=== PATIENT | male | born 1935 | race Caucasian/White ===

== ENCOUNTER 2023-11-29 14:51 | Emergency (ER) | payer MEDICARE, OTHER ==
[~2023-11-29] VITALS: Ht 165.1 cm; Wt 81.6 kg
[2023-11-29 14:58] VITALS: BP 145/67; PULSE 66; RESP 18; TEMP 97.3; O2SAT 99
[2023-11-29] MEDS ORDERED: NAPR-337 PO (15:35)
[2023-11-29] MEDS ORDERED: LISI5TAB24 PO (15:35)
[2023-11-29] MEDS ORDERED: TAMS0.4C96 PO (15:35)
[2023-11-29] MEDS ORDERED: ASPI-1822 PO (15:35)
[2023-11-29] MEDS ORDERED: ATEN100T6 PO (15:35)
[2023-11-29] MEDS ORDERED: ATOR20TA PO (15:35)
[2023-11-29 15:40] LABS: EOSINOPHILS % (AUTO) 0.1 % (0.0-4.0); HEMATOCRIT 35.1 % (36-52); HEMOGLOBIN 12.3 g/dL (12.0-18.0); LYMPHOCYTES # (AUTO) 1.5 K/uL (2.0-11.5); LYMPHOCYTES % (AUTO) 16.5 % (20.5-51.1); MEAN CORPUSCULAR HEMOGLOBIN 33 pg (27-31); MEAN CORPUSCULAR HGB CONC 35 g/dL (33-37); MONOCYTES # (AUTO) 0.6 K/uL (0.8-1.0); NEUTROPHILS # (AUTO) 7.1 K/uL (1.8-7.7); NEUTROPHILS % (AUTO) 76.4 % (42.2-75.2); PLATELET COUNT (AUTO) 203 K/uL (140-450); RED BLOOD CELL COUNT(AUTO) 3.77 MIL/uL (4.20-6.10); RED CELL DISTRIBUTION WIDTH 15.7 % (11.6-13.7); WHITE BLOOD COUNT (AUTO) 9.3 K/uL (4.8-10.8)
[2023-11-29] MEDS: KETOROLAC 30 MG/ML VIAL IVP ONE (15:51)
[2023-11-29 15:57] LABS: ANION GAP 10.8 (8-16); CALCIUM 8.8 mg/dL (8.5-10.1); CHLORIDE 97 mmol/L (98-107); CREATININE 0.9 mg/dL (0.6-1.3); GLUCOSE 138 mg/dL (74-106); POTASSIUM 3.8 mmol/L (3.5-5.1); SODIUM SERUM 132 mmol/L (136-145); UREA NITROGEN, BLOOD 25 mg/dL (7-18)
[2023-11-29 16:17] LABS: ALBUMIN 2.5 g/dL (3.4-5.0); BILIRUBIN,DIRECT 0.2 mg/dL (0.0-0.3); TOTAL BILIRUBIN 0.9 mg/dL (0.0-1.0); TOTAL PROTEIN, SERUM 6.5 g/dL (6.4-8.2)
[2023-11-29 16:54] LABS: APPEARANCE,URINE CLEAR (CLEAR); BILIRUBIN,URINE 1+ (NEGATIVE); BLOOD, URINE 1+ (NEGATIVE); COLOR,URINE YELLOW (YELLOW); LEUKOCYTE ESTERASE ,URINE NEGATIVE (NEGATIVE); NITRITE, URINE NEGATIVE (NEGATIVE); PROTEIN,URINE 1+ (NEGATIVE); UGLUCOSE NEGATIVE (NEGATIVE)
[2023-11-29] MEDS ORDERED: OMEP40EC23 PO (16:55)
[2023-11-29] MEDS ORDERED: LOPE-289 PO (16:55)
[2023-11-29] MEDS ORDERED: IBUP-2213 PO (16:55)
[2023-11-29] MEDS: NACL 0.9% 1,000 ML IV ONE (17:01)
[2023-11-29 17:10] LABS: RBC,URINE 0-5 /HPF (0-5); WBC,URINE 0-5 /HPF (0-5)
[2023-11-29 17:11] LABS: BACTERIA,URINE 10-30 (MOD) /HPF (None Seen); ICTOTEST NEGATIVE (NEGATIVE); SQUAMOUS EPITHELIAL CELL,UR 0-3 (FEW) /LPF (0-3 (FEW))
[2023-11-29] MEDS: MORPHINE SULFATE 4 MG/ML SYR IVP ONE (17:59)
[2023-11-29 18:15] VITALS: BP 126/65; PULSE 74; RESP 16; O2SAT 95
== END 2023-11-29 18:15 | disposition home or self-care (01) ==
LOC: MED 14:51
DX: R10.31 Right lower quadrant pain (principal); R10.11 Right upper quadrant pain; R19.7 Diarrhea, unspecified; I10 Essential (primary) hypertension; Z79.899 Other long term (current) drug therapy
CPT/HCPCS: 36415; 74176; 80048; 80076; 81001; 83690; 85025; 96361; 96374; 99285; J1885

== ENCOUNTER 2023-12-01 11:49 | Inpatient (IN) | payer MEDICARE, OTHER ==
[~2023-12-01] VITALS: Ht 170.2 cm; Wt 65.8 kg
[~2023-12-01 11:49] MED LIST: ASPI-1822 PO; ATEN100T6 PO; ATOR20TA PO; IBUP-2213 PO; LISI5TAB24 PO; LOPE-289 PO; NAPR-337 PO; OMEP40EC23 PO; TAMS0.4C96 PO
[2023-12-01 11:59] VITALS: BP 102/64; PULSE 100; RESP 20; TEMP 97.8; O2SAT 93
[2023-12-01 12:32] LABS: BASOPHILS % (AUTO) 0.1 % (0.0-2.0); EOSINOPHILS % (AUTO) 0.2 % (0.0-4.0); HEMATOCRIT 33.9 % (36-52); HEMOGLOBIN 11.8 g/dL (12.0-18.0); LYMPHOCYTES # (AUTO) 0.2 K/uL (2.0-11.5); LYMPHOCYTES % (AUTO) 2.4 % (20.5-51.1); MEAN CORPUSCULAR HEMOGLOBIN 32 pg (27-31); MEAN CORPUSCULAR HGB CONC 35 g/dL (33-37); MEAN CORPUSCULAR VOLUME 93.2 fL (80-94); MONOCYTES # (AUTO) 0.1 K/uL (0.8-1.0); MONOCYTES % (AUTO) 0.9 % (1.7-9.3); NEUTROPHILS # (AUTO) 6.4 K/uL (1.8-7.7); NEUTROPHILS % (AUTO) 96.4 % (42.2-75.2); PLATELET COUNT (AUTO) 140 K/uL (140-450); RED BLOOD CELL COUNT(AUTO) 3.64 MIL/uL (4.20-6.10); RED CELL DISTRIBUTION WIDTH 16.1 % (11.6-13.7); WHITE BLOOD COUNT (AUTO) 6.7 K/uL (4.8-10.8)
[2023-12-01 12:58] LABS: ALANINE AMINOTRANSFERASE 14 U/L (12-78); ALBUMIN 1.6 g/dL (3.4-5.0); ALKALINE PHOSPHATASE 57 U/L (50-136); ANION GAP 13.8 (8-16); ASPARTATE AMINOTRANSFERASE 18 U/L (15-37); CALCIUM 7.6 mg/dL (8.5-10.1); CARBON DIOXIDE 21.8 mmol/L (21-32); CHLORIDE 95 mmol/L (98-107); CREATININE 1.4 mg/dL (0.6-1.3); GLUCOSE 77 mg/dL (74-106); LIPASE 13 U/L (16-77); POTASSIUM 3.6 mmol/L (3.5-5.1); SODIUM SERUM 127 mmol/L (136-145); TOTAL PROTEIN, SERUM 5.2 g/dL (6.4-8.2); UREA NITROGEN, BLOOD 33 mg/dL (7-18)
[2023-12-01] MEDS ORDERED: PIPERACILLIN/TAZOBACTAM 3.375 GM VIAL IV ONE (14:23)
[2023-12-01] MEDS: PIPERACILLIN/TAZOBACTAM 3.375 GM in DEXTROSE 5% 50 ML IV ONE (14:39)
[2023-12-01 14:52] LABS: INR 1.19 (0.8-1.2); PROTHROMBIN TIME 12.4 secs (10.8-13.4)
[2023-12-01] MEDS ORDERED: cefTRIAXone 2,000 MG VIAL ONE (16:03)
[2023-12-01] MEDS: cefTRIAXone 2,000 MG in DEXTROSE 5% 100 ML IV ONE (16:11)
[2023-12-01] MEDS ORDERED: ACETAMINOPHEN 325 MG TAB PO PRN (21:50)
[2023-12-01] MEDS ORDERED: ONDANSETRON 4 MG/2 ML VIAL IVP PRN (21:50)
[2023-12-01] MEDS: LACTATED RINGERS 1,000 ML IV SCH (23:09)
[2023-12-01 23:25] VITALS: PULSE 81; RESP 18; O2SAT 97
[2023-12-02] VITALS: BP 109/76; PULSE 81; PULSE 92; RESP 18; TEMP 97.1; O2SAT 95
[2023-12-02 04:00] VITALS: BP 105/63; PULSE 79; PULSE 83; RESP 18; TEMP 97.5; O2SAT 96
[2023-12-02] MEDS: PIPERACILLIN/TAZOBACTAM 3.375 GM in DEXTROSE 5% 50 ML IV SCH (05:06)
[2023-12-02] MEDS: PIPERACILLIN/TAZOBACTAM 3.375 GM VIAL IV ONE (05:07)
[2023-12-02 07:18] LABS: HEMOGLOBIN 12.1 g/dL (12.0-18.0); MEAN CORPUSCULAR HEMOGLOBIN 32 pg (27-31); RED BLOOD CELL COUNT(AUTO) 3.75 MIL/uL (4.20-6.10)
[2023-12-02 07:23] LABS: HEMATOCRIT 34.7 % (36-52); MEAN CORPUSCULAR HGB CONC 35 g/dL (33-37); MEAN CORPUSCULAR VOLUME 92.5 fL (80-94); PLATELET COUNT (AUTO) 94 K/uL (140-450); RED CELL DISTRIBUTION WIDTH 16.2 % (11.6-13.7); WHITE BLOOD COUNT (AUTO) 10.2 K/uL (4.8-10.8)
[2023-12-02 07:26] LABS: ALANINE AMINOTRANSFERASE 14 U/L (12-78); ALBUMIN 1.6 g/dL (3.4-5.0); ALKALINE PHOSPHATASE 56 U/L (50-136); ASPARTATE AMINOTRANSFERASE 24 U/L (15-37); CALCIUM 8.1 mg/dL (8.5-10.1); CARBON DIOXIDE 21.9 mmol/L (21-32); CHLORIDE 92 mmol/L (98-107); CREATININE 1.4 mg/dL (0.6-1.3); GLUCOSE 54 mg/dL (74-106); MAGNESIUM 1.9 mg/dL (1.8-2.4); POTASSIUM 3.9 mmol/L (3.5-5.1); SODIUM SERUM 125 mmol/L (136-145); TOTAL BILIRUBIN 0.8 mg/dL (0.0-1.0); TOTAL PROTEIN, SERUM 5.4 g/dL (6.4-8.2); UREA NITROGEN, BLOOD 41 mg/dL (7-18)
[2023-12-02 08:00] VITALS: BP 101/68; PULSE 72; PULSE 80; RESP 18; TEMP 98.1; O2SAT 96
[2023-12-02 08:01] LABS: METAMYELOCYTES % 1 % (0-0); MYELOCYTES % 1 % (0-0)
[2023-12-02 08:02] LABS: LYMPHOCYTES % (MANUAL) 3 % (20-46); MONOCYTES % (MANUAL) 4 % (5-12)
[2023-12-02] MEDS: PANTOPRAZOLE 40 MG INJ VIAL IVP SCH (09:27)
[2023-12-02 12:00] VITALS: BP 111/72; PULSE 76; PULSE 83; RESP 18; TEMP 98.1; O2SAT 100
[2023-12-02 16:00] VITALS: BP 122/72; PULSE 76; PULSE 81; RESP 18; TEMP 98; O2SAT 100
[2023-12-02] MEDS: MORPHINE SULFATE 2 MG/ML SYR IVP PRN (16:08)
[2023-12-02 20:00] VITALS: BP 84/55; PULSE 91; PULSE 98; RESP 16; TEMP 96.5; O2SAT 100
[2023-12-02] MEDS ORDERED: INSULIN LISPRO SLIDING SCALE 100 UNITS/ML VIAL SUBQ PRN (20:50)
[2023-12-02] MEDS ORDERED: BLOOD GLUCOSE MONITORING 1 DEV DEV FS SCH (21:00)
[2023-12-03] VITALS (7 sets, daily range): BP systolic 105–120; BP diastolic 64–74; PULSE 68–95; RESP 16–19; TEMP 96.9–98.3; O2SAT 94–100
[2023-12-03] MEDS ORDERED: CIPR500T4 PO (15:40)
[2023-12-03] MEDS ORDERED: METR-520 PO (15:40)
[2023-12-03] MEDS ORDERED: ACET-8905 PO (15:40)
== END 2023-12-03 16:40 | disposition home or self-care (01) | DRG 871 ==
LOC: MED 11:49 → MTU 21:48
PROVIDERS: ADMIT Hospitalist; ATTEND Hospitalist
DX: A41.9 Sepsis, unspecified organism (principal); E43 Unspecified severe protein-calorie malnutrition; E87.1 Hypo-osmolality and hyponatremia; E87.20 Acidosis, unspecified; K57.20 Diverticulitis of large intestine with perforation and abscess without bleeding; Z79.899 Other long term (current) drug therapy; Z68.22 Body mass index [BMI] 22.0-22.9, adult
CPT/HCPCS: 36415; 71045; 74018; 76705; 80053; 83690; 83735; 83880; 84484; 85025; 85610; 85730; 86886; 86900; 86901; 87081; 96365; 96367; 99291; 99292; C9113; J0696; J2270; J2543; J7060; Q0092; Q9967

== ENCOUNTER 2023-12-08 03:04 | Inpatient (IN) | payer OTHER, MEDICARE ==
[2023-12-08] VITALS (18 sets, daily range): BP systolic 65–137; BP diastolic 40–76; PULSE 52–84; RESP 16–30; TEMP 86–101; O2SAT 96–100
[~2023-12-08] VITALS: Ht 165.1 cm; Wt 59.0 kg
[~2023-12-08 03:04] MED LIST changes: +ACET-8905 PO; +CIPR500T4 PO; -IBUP-2213 PO; +METR-520 PO
[2023-12-08] MEDS ORDERED: NACL 0.9% 1,000 ML IV SCH (03:20)
[2023-12-08] MEDS ORDERED: TAMS0.4C97 PO (04:03)
[2023-12-08] MEDS ORDERED: CIPR500P1 PO (04:03)
[2023-12-08] MEDS ORDERED: NAPR-337 PO (04:03)
[2023-12-08] MEDS ORDERED: METR-520 PO (04:03)
[2023-12-08] MEDS ORDERED: ACET-8905 PO (04:03)
[2023-12-08] MEDS ORDERED: ATEN100T2 PO (04:03)
[2023-12-08] MEDS ORDERED: ASPI-1822 PO (04:03)
[2023-12-08 04:16] LABS: HEMATOCRIT 34.3 % (36-52); HEMOGLOBIN 11.4 g/dL (12.0-18.0); MEAN CORPUSCULAR HEMOGLOBIN 32 pg (27-31); MEAN CORPUSCULAR HGB CONC 33 g/dL (33-37); MEAN CORPUSCULAR VOLUME 95.6 fL (80-94); PLATELET COUNT (AUTO) 140 K/uL (140-450); RED BLOOD CELL COUNT(AUTO) 3.58 MIL/uL (4.20-6.10); RED CELL DISTRIBUTION WIDTH 17.2 % (11.6-13.7); WHITE BLOOD COUNT (AUTO) 15.1 K/uL (4.8-10.8)
[2023-12-08 04:17] LABS: BILIRUBIN,URINE 1+ (NEGATIVE); BLOOD, URINE 2+ (NEGATIVE); COLOR,URINE YELLOW (YELLOW); LEUKOCYTE ESTERASE ,URINE NEGATIVE (NEGATIVE); NITRITE, URINE NEGATIVE (NEGATIVE); PH,URINE 5.5 (5.0-9.0); PROTEIN,URINE NEGATIVE (NEGATIVE); UGLUCOSE NEGATIVE (NEGATIVE); UROBILINOGEN,URINE 0.2 EU/dL (0.2 - 1)
[2023-12-08 04:17] LABS: ANION GAP 17.1 (8-16); CALCIUM 8.7 mg/dL (8.5-10.1); CARBON DIOXIDE 21.1 mmol/L (21-32); CHLORIDE 97 mmol/L (98-107); CREATININE 3.1 mg/dL (0.6-1.3); GLUCOSE 135 mg/dL (74-106); POTASSIUM 5.2 mmol/L (3.5-5.1); SODIUM SERUM 130 mmol/L (136-145)
[2023-12-08] MEDS: PIPERACILLIN/TAZOBACTAM 3.375 GM in DEXT 5% MINI-BAG PLUS 50 ML IV ONE (04:20)
[2023-12-08] MEDS ORDERED: PIPERACILLIN/TAZOBACTAM 3.375 GM VIAL IV ONE (04:21)
[2023-12-08 04:23] LABS: UREA NITROGEN, BLOOD 133 mg/dL (7-18)
[2023-12-08] MEDS: SODIUM BICARBONATE 8.4% PFS 50 MEQ/50 ML SYR IVP ONE ×2 (04:25→06:48)
[2023-12-08 04:29] LABS: APPEARANCE,URINE SLIGHTLY HAZY (CLEAR)
[2023-12-08 04:30] LABS: INR 1.04 (0.8-1.2); PARTIAL THROMBOPLASTIN TIME 31.7 secs (22-35.6); PROTHROMBIN TIME 10.9 secs (10.8-13.4)
[2023-12-08] MEDS: NACL 0.9% 1,000 ML IV ONE (04:32)
[2023-12-08 04:33] LABS: ALANINE AMINOTRANSFERASE 27 U/L (12-78); ALBUMIN 1.5 g/dL (3.4-5.0); ALKALINE PHOSPHATASE 152 U/L (50-136); ASPARTATE AMINOTRANSFERASE 42 U/L (15-37); BILIRUBIN,DIRECT 0.5 mg/dL (0.0-0.3); CREATINE KINASE, TOTAL 141 U/L (39-308); TOTAL PROTEIN, SERUM 5.8 g/dL (6.4-8.2)
[2023-12-08 04:37] LABS: EOSINOPHILS % (MANUAL) 1 % (0-4); LYMPHOCYTES % (MANUAL) 3 % (20-46); MONOCYTES % (MANUAL) 6 % (5-12)
[2023-12-08 04:44] LABS: LACTIC ACID 2.1 mmol/L (0.4-2.0)
[2023-12-08 04:46] LABS: BACTERIA,URINE 2+ /HPF (None Seen); RBC,URINE 20-50 /HPF (0-5); SQUAMOUS EPITHELIAL CELL,UR 4-10 (MOD) /LPF (0-3 (FEW)); WBC,URINE 0-5 /HPF (0-5)
[2023-12-08 04:48] LABS: ICTOTEST NEGATIVE (NEGATIVE)
[2023-12-08] MEDS ORDERED: ALBUMIN HUMAN 5 % 500 ML IV SCH (05:25)
[2023-12-08] MEDS ORDERED: METOCLOPRAMIDE 10 MG/2 ML INJ VIAL IVP PRN (05:35)
[2023-12-08] MEDS ORDERED: ONDANSETRON 4 MG/2 ML VIAL IVP PRN (05:35)
[2023-12-08] MEDS: NOREPINEPHRINE 4 MG/4 ML VIAL IV ONE ×2 (05:48→12:06)
[2023-12-08] MEDS: ROCURONIUM 50 MG/5 ML VIAL IV ONE ×4 (06:17→08:30)
[2023-12-08] MEDS: fentaNYL citrate 0.05 MG/ML VIAL ONE (06:18)
[2023-12-08] MEDS: DEXTROSE 50% 50 ML SYR IVP ONE (06:48)
[2023-12-08] MEDS: CALCIUM CHLORIDE 10% 100 MG/ML SYR IVP ONE ×2 (06:49→10:31)
[2023-12-08] MEDS ORDERED: SEVOFLURANE 250 ML BTL INH ONE (07:00)
[2023-12-08] MEDS: BUPIVACAINE-MPF 0.25% 30 ML VIAL INJ ONE ×2 (07:09→10:35)
[2023-12-08] MEDS: SUCCINYLCHOLINE CHLORIDE 200 MG/10 ML VIAL IVP ONE (07:33)
[2023-12-08 09:27] LABS: BASOPHILS % (AUTO) 0.1 % (0.0-2.0); EOSINOPHILS % (AUTO) 0.2 % (0.0-4.0); HEMATOCRIT 29.9 % (36-52); HEMOGLOBIN 10.1 g/dL (12.0-18.0); LYMPHOCYTES # (AUTO) 1.2 K/uL (2.0-11.5); LYMPHOCYTES % (AUTO) 8.8 % (20.5-51.1); MEAN CORPUSCULAR HEMOGLOBIN 32 pg (27-31); MEAN CORPUSCULAR HGB CONC 34 g/dL (33-37); MEAN CORPUSCULAR VOLUME 95.4 fL (80-94); MONOCYTES # (AUTO) 0.3 K/uL (0.8-1.0); MONOCYTES % (AUTO) 2.4 % (1.7-9.3); NEUTROPHILS # (AUTO) 12.3 K/uL (1.8-7.7); NEUTROPHILS % (AUTO) 88.5 % (42.2-75.2); PLATELET COUNT (AUTO) 149 K/uL (140-450); RED BLOOD CELL COUNT(AUTO) 3.14 MIL/uL (4.20-6.10); RED CELL DISTRIBUTION WIDTH 16.9 % (11.6-13.7); WHITE BLOOD COUNT (AUTO) 13.9 K/uL (4.8-10.8)
[2023-12-08 09:41] LABS: ANION GAP 14.5 (8-16); CALCIUM 8.2 mg/dL (8.5-10.1); CHLORIDE 104 mmol/L (98-107); CREATININE 2.5 mg/dL (0.6-1.3); GLUCOSE 125 mg/dL (74-106); POTASSIUM 4.5 mmol/L (3.5-5.1); SODIUM SERUM 136 mmol/L (136-145)
[2023-12-08 09:43] LABS: UREA NITROGEN, BLOOD 117 mg/dL (7-18)
[2023-12-08] MEDS: PROPOFOL 1000 MG/100 ML PREMIX 100 ML IV ONE (10:19)
[2023-12-08] MEDS: DEXT 5% /NACL 0.9% 1,000 ML IV SCH (11:00)
[2023-12-08] MEDS: PIPERACILLIN/TAZOBACTAM 2.25 GM in DEXTROSE 5% 50 ML IV SCH (12:13)
[2023-12-08 12:32] LABS: BLOOD GAS HCO3 13.8 mmol/L (22-26); BLOOD GAS PCO2 33.7 mmHg (35-45); BLOOD GAS PH 7.229 (7.35-7.45); BLOOD GAS PO2 96.8 mmHg (75-100)
[2023-12-08 12:33] LABS: BLOOD GAS BASE EXCESS -12.7 mmol/L (-2.0-2.0); BLOOD GAS O2 SAT% 96.4 % (92.0-98.5)
[2023-12-08] MEDS: NOREPINEPHRINE 4 MG in DEXTROSE 5% 250 ML IV PRN (13:05)
[2023-12-08] MEDS: SODIUM BICARBONATE 8.4% PFS 50 MEQ/50 ML SYR IVP SCH (13:06)
[2023-12-08] MEDS: NOREPINEPHRINE 16 MG in DEXTROSE 5% 250 ML IV PRN (15:13)
[2023-12-08] MEDS: VASOPRESSIN 20 UNITS/ML VIAL ONE (15:44)
[2023-12-08] MEDS: VASOPRESSIN 40 UNITS in NACL 0.9% 250 ML IV PRN (15:44)
[2023-12-08] MEDS ORDERED: VANCOMYCIN PER PHARMACY MC PRN (16:45)
[2023-12-08] MEDS ORDERED: VANCOMYCIN 1,000 MG VIAL ONE ×2 (17:16→17:18)
[2023-12-08] MEDS ORDERED: MEROPENEM 1,000 MG VIAL IV ONE (17:17)
[2023-12-08] MEDS: MEROPENEM 1,000 MG in NACL 0.9% 100 ML IV ONE (17:25)
[2023-12-08] MEDS ORDERED: NACL 0.9% 500 ML IV SCH (17:55)
[2023-12-08] MEDS: VANCOMYCIN 1GM/DEXT 5% PREMIX 200 ML IV ONE (18:30)
[2023-12-08] MEDS ORDERED: PHENYLEPHRINE 40 MG in NACL 0.9% 250 ML IV PRN (21:20)
[2023-12-09] VITALS (29 sets, daily range): BP systolic 67–148; BP diastolic 35–92; PULSE 52–79; RESP 16–28; TEMP 97–98.6; O2SAT 94–99
[2023-12-09] MEDS: PROPOFOL 1000 MG/100 ML PREMIX 100 ML IV ONE (00:34)
[2023-12-09] MEDS: PROPOFOL 1000 MG/100 ML PREMIX 100 ML IV PRN ×2 (00:39→12:23)
[2023-12-09] MEDS: NOREPINEPHRINE 4 MG/4 ML VIAL IV ONE (03:08)
[2023-12-09 05:17] LABS: BASOPHILS % (AUTO) 0.1 % (0.0-2.0); HEMATOCRIT 32.8 % (36-52); HEMOGLOBIN 11.2 g/dL (12.0-18.0); LYMPHOCYTES # (AUTO) 0.6 K/uL (2.0-11.5); LYMPHOCYTES % (AUTO) 2.8 % (20.5-51.1); MEAN CORPUSCULAR HEMOGLOBIN 32 pg (27-31); MEAN CORPUSCULAR HGB CONC 34 g/dL (33-37); MEAN CORPUSCULAR VOLUME 94.2 fL (80-94); MONOCYTES # (AUTO) 0.4 K/uL (0.8-1.0); MONOCYTES % (AUTO) 1.8 % (1.7-9.3); NEUTROPHILS # (AUTO) 21.9 K/uL (1.8-7.7); NEUTROPHILS % (AUTO) 95.3 % (42.2-75.2); PLATELET COUNT (AUTO) 140 K/uL (140-450); RED BLOOD CELL COUNT(AUTO) 3.48 MIL/uL (4.20-6.10); RED CELL DISTRIBUTION WIDTH 17.3 % (11.6-13.7)
[2023-12-09 05:46] LABS: CARBON DIOXIDE 19.8 mmol/L (21-32); CHLORIDE 105 mmol/L (98-107); GLUCOSE 360 mg/dL (74-106); POTASSIUM 4.8 mmol/L (3.5-5.1); SODIUM SERUM 136 mmol/L (136-145)
[2023-12-09 05:47] LABS: ALANINE AMINOTRANSFERASE 21 U/L (12-78); ALKALINE PHOSPHATASE 92 U/L (50-136); ASPARTATE AMINOTRANSFERASE 33 U/L (15-37); CALCIUM 7.5 mg/dL (8.5-10.1); TOTAL BILIRUBIN 1.1 mg/dL (0.0-1.0); TOTAL PROTEIN, SERUM 4.1 g/dL (6.4-8.2); UREA NITROGEN, BLOOD 81 mg/dL (7-18)
[2023-12-09 05:48] LABS: ALBUMIN 0.9 g/dL (3.4-5.0); MAGNESIUM 2.3 mg/dL (1.8-2.4)
[2023-12-09] MEDS: PANTOPRAZOLE 40 MG INJ VIAL IVP SCH (08:06)
[2023-12-09] MEDS: MEROPENEM 500 MG in NACL 0.9% 50 ML IV SCH (08:08)
[2023-12-09] MEDS ORDERED: PANTOPRAZOLE 40 MG INJ VIAL IVP SCH (09:00)
[2023-12-09] MEDS: NOREPINEPHRINE 16 MG in DEXTROSE 5% 250 ML IV PRN (11:40)
[2023-12-09] MEDS: VANCOMYCIN 750 MG in DEXTROSE 5% 250 ML IV SCH (21:28)
[2023-12-10] VITALS (32 sets, daily range): BP systolic 108–158; BP diastolic 33–90; PULSE 55–88; RESP 12–24; TEMP 97.3–98.4; O2SAT 92–100
[2023-12-10 05:20] LABS: BASOPHILS % (AUTO) 0.2 % (0.0-2.0); EOSINOPHILS % (AUTO) 0.1 % (0.0-4.0); HEMATOCRIT 26.4 % (36-52); HEMOGLOBIN 8.9 g/dL (12.0-18.0); LYMPHOCYTES # (AUTO) 0.7 K/uL (2.0-11.5); LYMPHOCYTES % (AUTO) 2.9 % (20.5-51.1); MEAN CORPUSCULAR HEMOGLOBIN 32 pg (27-31); MEAN CORPUSCULAR HGB CONC 34 g/dL (33-37); MEAN CORPUSCULAR VOLUME 94.3 fL (80-94); MONOCYTES # (AUTO) 0.7 K/uL (0.8-1.0); MONOCYTES % (AUTO) 2.7 % (1.7-9.3); NEUTROPHILS # (AUTO) 22.5 K/uL (1.8-7.7); NEUTROPHILS % (AUTO) 94.1 % (42.2-75.2); PLATELET COUNT (AUTO) 112 K/uL (140-450); RED BLOOD CELL COUNT(AUTO) 2.81 MIL/uL (4.20-6.10); RED CELL DISTRIBUTION WIDTH 17.1 % (11.6-13.7)
[2023-12-10 05:45] LABS: ALANINE AMINOTRANSFERASE 27 U/L (12-78); ALBUMIN 0.9 g/dL (3.4-5.0); ALKALINE PHOSPHATASE 93 U/L (50-136); ANION GAP 13.3 (8-16); ASPARTATE AMINOTRANSFERASE 40 U/L (15-37); CALCIUM 7.2 mg/dL (8.5-10.1); CARBON DIOXIDE 23.4 mmol/L (21-32); CHLORIDE 103 mmol/L (98-107); CREATININE 1.6 mg/dL (0.6-1.3); GLUCOSE 244 mg/dL (74-106); MAGNESIUM 2.1 mg/dL (1.8-2.4); POTASSIUM 3.7 mmol/L (3.5-5.1); SODIUM SERUM 136 mmol/L (136-145); UREA NITROGEN, BLOOD 64 mg/dL (7-18)
[2023-12-10] MEDS: FUROSEMIDE 100 MG/10 ML VIAL IV SCH (08:14)
[2023-12-10] MEDS: FUROSEMIDE 100 MG in DEXTROSE 5% 100 ML IV SCH (09:15)
[2023-12-10] MEDS ORDERED: FUROSEMIDE IV SCH (10:05)
[2023-12-10] MEDS ORDERED: DEXTROSE 5% IV SCH (10:05)
[2023-12-10] MEDS: ALBUMIN HUMAN 25% 100 ML IV SCH ×2 (11:18→12:15)
[2023-12-10] MEDS: VANCOMYCIN 500 MG in NACL 0.9% 100 ML IV SCH (21:57)
[2023-12-11] VITALS (38 sets, daily range): BP systolic 75–198; BP diastolic 29–79; PULSE 63–101; RESP 15–27; TEMP 97.8–98.8; O2SAT 98–100
[2023-12-11] MEDS: MORPHINE SULFATE 2 MG/ML SYR IVP PRN (02:03)
[2023-12-11 05:47] LABS: BASOPHILS % (AUTO) 0.1 % (0.0-2.0); EOSINOPHILS % (AUTO) 0.2 % (0.0-4.0); HEMOGLOBIN 7.9 g/dL (12.0-18.0); LYMPHOCYTES # (AUTO) 0.8 K/uL (2.0-11.5); LYMPHOCYTES % (AUTO) 3.3 % (20.5-51.1); MEAN CORPUSCULAR HEMOGLOBIN 32 pg (27-31); MEAN CORPUSCULAR HGB CONC 34 g/dL (33-37); MEAN CORPUSCULAR VOLUME 92.7 fL (80-94); MONOCYTES # (AUTO) 0.6 K/uL (0.8-1.0); MONOCYTES % (AUTO) 2.6 % (1.7-9.3); NEUTROPHILS # (AUTO) 21.7 K/uL (1.8-7.7); NEUTROPHILS % (AUTO) 93.8 % (42.2-75.2); PLATELET COUNT (AUTO) 106 K/uL (140-450); RED BLOOD CELL COUNT(AUTO) 2.48 MIL/uL (4.20-6.10); RED CELL DISTRIBUTION WIDTH 17.1 % (11.6-13.7); WHITE BLOOD COUNT (AUTO) 23.1 K/uL (4.8-10.8)
[2023-12-11 06:08] LABS: ALANINE AMINOTRANSFERASE 25 U/L (12-78); ALBUMIN 1.8 g/dL (3.4-5.0); ALKALINE PHOSPHATASE 85 U/L (50-136); ANION GAP 11.4 (8-16); ASPARTATE AMINOTRANSFERASE 29 U/L (15-37); CALCIUM 7.7 mg/dL (8.5-10.1); CARBON DIOXIDE 29.2 mmol/L (21-32); CHLORIDE 103 mmol/L (98-107); CREATININE 1.1 mg/dL (0.6-1.3); GLUCOSE 206 mg/dL (74-106); SODIUM SERUM 141 mmol/L (136-145); TOTAL BILIRUBIN 1.8 mg/dL (0.0-1.0); TOTAL PROTEIN, SERUM 4.8 g/dL (6.4-8.2); UREA NITROGEN, BLOOD 37 mg/dL (7-18)
[2023-12-11 06:12] LABS: POTASSIUM 2.6 mmol/L (3.5-5.1)
[2023-12-11] MEDS: KCL IV SCH (06:54)
[2023-12-11] MEDS ORDERED: TPN PER PHARMACY MC PRN (12:25)
[2023-12-11] MEDS ORDERED: GAUZE TP PRN (13:05)
[2023-12-11] MEDS: VANCOMYCIN HCL 750 MG in NACL 0.9% 250 ML IV SCH (15:31)
[2023-12-11 19:05] LABS: BASOPHILS % (AUTO) 0.1 % (0.0-2.0); EOSINOPHILS % (AUTO) 0.1 % (0.0-4.0); HEMATOCRIT 29.6 % (36-52); HEMOGLOBIN 10.1 g/dL (12.0-18.0); LYMPHOCYTES # (AUTO) 1.1 K/uL (2.0-11.5); LYMPHOCYTES % (AUTO) 5.2 % (20.5-51.1); MEAN CORPUSCULAR HEMOGLOBIN 31 pg (27-31); MEAN CORPUSCULAR HGB CONC 34 g/dL (33-37); MEAN CORPUSCULAR VOLUME 92.3 fL (80-94); MONOCYTES # (AUTO) 0.5 K/uL (0.8-1.0); MONOCYTES % (AUTO) 2.6 % (1.7-9.3); NEUTROPHILS # (AUTO) 19.1 K/uL (1.8-7.7); PLATELET COUNT (AUTO) 101 K/uL (140-450); RED BLOOD CELL COUNT(AUTO) 3.21 MIL/uL (4.20-6.10); RED CELL DISTRIBUTION WIDTH 16.2 % (11.6-13.7); WHITE BLOOD COUNT (AUTO) 20.7 K/uL (4.8-10.8)
[2023-12-12] VITALS (32 sets, daily range): BP systolic 89–190; BP diastolic 52–75; PULSE 65–97; RESP 16–26; TEMP 97.1–99.2; O2SAT 92–100
[2023-12-12 05:15] LABS: BASOPHILS % (AUTO) 0.1 % (0.0-2.0); EOSINOPHILS % (AUTO) 0.2 % (0.0-4.0); HEMOGLOBIN 10.5 g/dL (12.0-18.0); LYMPHOCYTES # (AUTO) 1.2 K/uL (2.0-11.5); LYMPHOCYTES % (AUTO) 5.5 % (20.5-51.1); MEAN CORPUSCULAR HEMOGLOBIN 32 pg (27-31); MEAN CORPUSCULAR HGB CONC 34 g/dL (33-37); MEAN CORPUSCULAR VOLUME 92.7 fL (80-94); MONOCYTES # (AUTO) 0.6 K/uL (0.8-1.0); MONOCYTES % (AUTO) 3.1 % (1.7-9.3); NEUTROPHILS % (AUTO) 91.1 % (42.2-75.2); PLATELET COUNT (AUTO) 98 K/uL (140-450); RED BLOOD CELL COUNT(AUTO) 3.34 MIL/uL (4.20-6.10); RED CELL DISTRIBUTION WIDTH 16.3 % (11.6-13.7); WHITE BLOOD COUNT (AUTO) 20.9 K/uL (4.8-10.8)
[2023-12-12 05:53] LABS: CHOL/HDL RATIO 2.7 (1-4.5); PHOSPHORUS 2.7 mg/dL (2.5-4.9)
[2023-12-12 05:57] LABS: ALANINE AMINOTRANSFERASE 25 U/L (12-78); ALBUMIN 1.5 g/dL (3.4-5.0); ALKALINE PHOSPHATASE 99 U/L (50-136); ANION GAP 11.9 (8-16); ASPARTATE AMINOTRANSFERASE 30 U/L (15-37); CALCIUM 7.6 mg/dL (8.5-10.1); CARBON DIOXIDE 29.8 mmol/L (21-32); CHLORIDE 104 mmol/L (98-107); CREATININE 0.9 mg/dL (0.6-1.3); GLUCOSE 179 mg/dL (74-106); MAGNESIUM 1.6 mg/dL (1.8-2.4); SODIUM SERUM 143 mmol/L (136-145); TOTAL BILIRUBIN 3.1 mg/dL (0.0-1.0); TOTAL PROTEIN, SERUM 4.7 g/dL (6.4-8.2); UREA NITROGEN, BLOOD 31 mg/dL (7-18)
[2023-12-12 07:23] LABS: POTASSIUM 2.7 mmol/L (3.5-5.1)
[2023-12-12] MEDS ORDERED: POTASSIUM CHLORIDE 10 MEQ TABER PO SCH (08:30)
[2023-12-12] MEDS: POTASSIUM CHLORIDE 20% 40 MEQ/15 ML UDC PO SCH (09:18)
[2023-12-12] MEDS: KCL 20 MEQ IN 100 mL PREMIX 200 ML IV SCH (10:18)
[2023-12-12] MEDS: MAG SULF 2000 MG/WATER PREMIX 50 ML IV SCH (11:54)
[2023-12-12] MEDS: GAUZE TP SCH (13:00)
[2023-12-12 16:46] LABS: ANION GAP 8.1 (8-16); CARBON DIOXIDE 30.6 mmol/L (21-32); CHLORIDE 109 mmol/L (98-107); CREATININE 0.8 mg/dL (0.6-1.3); GLUCOSE 160 mg/dL (74-106); POTASSIUM 3.7 mmol/L (3.5-5.1); SODIUM SERUM 144 mmol/L (136-145); UREA NITROGEN, BLOOD 32 mg/dL (7-18)
[2023-12-12] MEDS: FUROSEMIDE 40 MG/4 ML VIAL IVP SCH (18:11)
[2023-12-12] MEDS: ALBUMIN HUMAN 25% 100 ML IV SCH (18:14)
[2023-12-12] MEDS: BLOOD GLUCOSE MONITORING 1 DEV DEV MC SCH (18:23)
[2023-12-12] MEDS: INSULIN LISPRO SLIDING SCALE 100 UNITS/ML VIAL SUBQ PRN (18:35)
[2023-12-12] MEDS: MULTIVITAMIN IV SCH (19:58)
[2023-12-12] MEDS: DEXTROSE IV SCH (19:58)
[2023-12-12] MEDS: AMINO ACIDS 8.5% IV SCH (19:58)
[2023-12-13] VITALS (30 sets, daily range): BP systolic 94–139; BP diastolic 49–77; PULSE 51–96; RESP 16–25; TEMP 97.9–98.6; O2SAT 96–100
[2023-12-13 05:28] LABS: BASOPHILS % (AUTO) 0.1 % (0.0-2.0); EOSINOPHILS % (AUTO) 0.3 % (0.0-4.0); HEMATOCRIT 29.3 % (36-52); LYMPHOCYTES # (AUTO) 0.8 K/uL (2.0-11.5); LYMPHOCYTES % (AUTO) 5.8 % (20.5-51.1); MEAN CORPUSCULAR HEMOGLOBIN 32 pg (27-31); MEAN CORPUSCULAR HGB CONC 34 g/dL (33-37); MEAN CORPUSCULAR VOLUME 93.1 fL (80-94); MONOCYTES # (AUTO) 0.5 K/uL (0.8-1.0); MONOCYTES % (AUTO) 3.8 % (1.7-9.3); NEUTROPHILS # (AUTO) 12.4 K/uL (1.8-7.7); PLATELET COUNT (AUTO) 115 K/uL (140-450); RED BLOOD CELL COUNT(AUTO) 3.14 MIL/uL (4.20-6.10); RED CELL DISTRIBUTION WIDTH 16.5 % (11.6-13.7); WHITE BLOOD COUNT (AUTO) 13.8 K/uL (4.8-10.8)
[2023-12-13 05:43] LABS: PHOSPHORUS 2.3 mg/dL (2.5-4.9); VANCOMYCIN,RANDOM 9.4 ug/ml
[2023-12-13 05:58] LABS: ALANINE AMINOTRANSFERASE 16 U/L (12-78); ALBUMIN 1.9 g/dL (3.4-5.0); ALKALINE PHOSPHATASE 85 U/L (50-136); ASPARTATE AMINOTRANSFERASE 24 U/L (15-37); CALCIUM 7.7 mg/dL (8.5-10.1); CHLORIDE 106 mmol/L (98-107); CREATININE 0.9 mg/dL (0.6-1.3); GLUCOSE 204 mg/dL (74-106); MAGNESIUM 1.6 mg/dL (1.8-2.4); SODIUM SERUM 145 mmol/L (136-145); TOTAL BILIRUBIN 4.3 mg/dL (0.0-1.0); TOTAL PROTEIN, SERUM 4.9 g/dL (6.4-8.2); UREA NITROGEN, BLOOD 29 mg/dL (7-18)
[2023-12-13] MEDS: KCL 20 MEQ IN 100 mL PREMIX 200 ML IV SCH (12:32)
[2023-12-13] MEDS: FUROSEMIDE 40 MG/4 ML VIAL IVP SCH (12:33)
[2023-12-13] MEDS: MIDODRINE 5 MG TAB PO SCH (12:34)
[2023-12-13] MEDS: ALBUMIN HUMAN 25% 100 ML IV SCH (12:36)
[2023-12-13] MEDS: DEXMEDETOMIDINE HCL 400 MCG in NACL 0.9% 96 ML IV PRN ×2 (14:03→14:43)
[2023-12-13] MEDS: VANCOMYCIN HCL 750 MG in DEXTROSE 5% 250 ML IV SCH (14:52)
[2023-12-13] MEDS ORDERED: POTASSIUM PHOSPHATE 15 MM in NACL 0.9% 250 ML IV SCH (16:00)
[2023-12-13] MEDS: MAG SULF 2000 MG/WATER PREMIX 50 ML IV SCH (16:37)
[2023-12-13] MEDS ORDERED: KCL IV PRN (20:50)
[2023-12-13] MEDS: POTASSIUM PHOSPHATE 15 MM in NACL 0.9% 250 ML IV SCH (21:31)
[2023-12-13 21:54] LABS: ANION GAP 9.7 (8-16); CALCIUM 7.9 mg/dL (8.5-10.1); CARBON DIOXIDE 30.6 mmol/L (21-32); CHLORIDE 106 mmol/L (98-107); CREATININE 0.7 mg/dL (0.6-1.3); GLUCOSE 202 mg/dL (74-106); POTASSIUM 3.3 mmol/L (3.5-5.1); SODIUM SERUM 143 mmol/L (136-145); UREA NITROGEN, BLOOD 25 mg/dL (7-18)
[2023-12-13] MEDS ORDERED: MAG SULF 2000 MG/WATER PREMIX 50 ML IV SCH (22:00)
[2023-12-14] VITALS (31 sets, daily range): BP systolic 101–185; BP diastolic 56–77; PULSE 57–79; RESP 16–24; TEMP 97.3–97.9; O2SAT 99–100
[2023-12-14 08:58] LABS: BASOPHILS % (AUTO) 0.3 % (0.0-2.0); EOSINOPHILS # (AUTO) 0.1 K/uL (0-0.4); EOSINOPHILS % (AUTO) 0.8 % (0.0-4.0); HEMATOCRIT 27.5 % (36-52); HEMOGLOBIN 9.2 g/dL (12.0-18.0); LYMPHOCYTES # (AUTO) 0.6 K/uL (2.0-11.5); LYMPHOCYTES % (AUTO) 4.7 % (20.5-51.1); MEAN CORPUSCULAR HEMOGLOBIN 32 pg (27-31); MEAN CORPUSCULAR HGB CONC 34 g/dL (33-37); MEAN CORPUSCULAR VOLUME 94.4 fL (80-94); MONOCYTES # (AUTO) 0.4 K/uL (0.8-1.0); MONOCYTES % (AUTO) 3.5 % (1.7-9.3); NEUTROPHILS # (AUTO) 11.2 K/uL (1.8-7.7); NEUTROPHILS % (AUTO) 90.7 % (42.2-75.2); PLATELET COUNT (AUTO) 117 K/uL (140-450); RED BLOOD CELL COUNT(AUTO) 2.91 MIL/uL (4.20-6.10); RED CELL DISTRIBUTION WIDTH 15.7 % (11.6-13.7); WHITE BLOOD COUNT (AUTO) 12.3 K/uL (4.8-10.8)
[2023-12-14] MEDS: FUROSEMIDE 40 MG/4 ML VIAL IVP SCH (09:13)
[2023-12-14 09:17] LABS: ALANINE AMINOTRANSFERASE 16 U/L (12-78); ALBUMIN 2.6 g/dL (3.4-5.0); ALKALINE PHOSPHATASE 78 U/L (50-136); ASPARTATE AMINOTRANSFERASE 28 U/L (15-37); CARBON DIOXIDE 27.8 mmol/L (21-32); CHLORIDE 107 mmol/L (98-107); CREATININE 0.7 mg/dL (0.6-1.3); GLUCOSE 181 mg/dL (74-106); MAGNESIUM 2.3 mg/dL (1.8-2.4); PHOSPHORUS 3.3 mg/dL (2.5-4.9); POTASSIUM 3.8 mmol/L (3.5-5.1); SODIUM SERUM 146 mmol/L (136-145); TOTAL BILIRUBIN 4.7 mg/dL (0.0-1.0); TOTAL PROTEIN, SERUM 5.3 g/dL (6.4-8.2); UREA NITROGEN, BLOOD 25 mg/dL (7-18)
[2023-12-15] VITALS (39 sets, daily range): BP systolic 103–176; BP diastolic 41–107; PULSE 53–86; RESP 16–31; TEMP 97.2–98; O2SAT 98–100
[2023-12-15 06:37] LABS: ALANINE AMINOTRANSFERASE 32 U/L (12-78); ALKALINE PHOSPHATASE 82 U/L (50-136); ANION GAP 8.8 (8-16); ASPARTATE AMINOTRANSFERASE 68 U/L (15-37); CALCIUM 7.7 mg/dL (8.5-10.1); CARBON DIOXIDE 31.7 mmol/L (21-32); CHLORIDE 108 mmol/L (98-107); CREATININE 0.7 mg/dL (0.6-1.3); GLUCOSE 143 mg/dL (74-106); MAGNESIUM 1.9 mg/dL (1.8-2.4); PHOSPHORUS 2.6 mg/dL (2.5-4.9); POTASSIUM 3.5 mmol/L (3.5-5.1); SODIUM SERUM 145 mmol/L (136-145); TOTAL BILIRUBIN 5.2 mg/dL (0.0-1.0); TOTAL PROTEIN, SERUM 4.7 g/dL (6.4-8.2); UREA NITROGEN, BLOOD 23 mg/dL (7-18)
[2023-12-15 06:43] LABS: BASOPHILS # (AUTO) 0.1 K/uL (0.00-0.22); BASOPHILS % (AUTO) 0.6 % (0.0-2.0); EOSINOPHILS # (AUTO) 0.1 K/uL (0-0.4); EOSINOPHILS % (AUTO) 0.7 % (0.0-4.0); HEMATOCRIT 28.2 % (36-52); HEMOGLOBIN 9.4 g/dL (12.0-18.0); LYMPHOCYTES # (AUTO) 0.9 K/uL (2.0-11.5); LYMPHOCYTES % (AUTO) 6.3 % (20.5-51.1); MEAN CORPUSCULAR HEMOGLOBIN 31 pg (27-31); MEAN CORPUSCULAR HGB CONC 34 g/dL (33-37); MEAN CORPUSCULAR VOLUME 93.5 fL (80-94); MONOCYTES # (AUTO) 0.6 K/uL (0.8-1.0); NEUTROPHILS # (AUTO) 12.1 K/uL (1.8-7.7); NEUTROPHILS % (AUTO) 88.4 % (42.2-75.2); PLATELET COUNT (AUTO) 109 K/uL (140-450); RED BLOOD CELL COUNT(AUTO) 3.02 MIL/uL (4.20-6.10); RED CELL DISTRIBUTION WIDTH 16.1 % (11.6-13.7); WHITE BLOOD COUNT (AUTO) 13.7 K/uL (4.8-10.8)
[2023-12-15] MEDS: FUROSEMIDE 40 MG/4 ML VIAL IVP SCH (08:12)
[2023-12-15] MEDS ORDERED: AMINO ACIDS 8.5% IV SCH (10:01)
[2023-12-15] MEDS ORDERED: DEXTROSE 50% IV SCH (10:01)
[2023-12-15] MEDS: KCL 20 MEQ IN 100 mL PREMIX 200 ML IV SCH (14:40)
[2023-12-15] MEDS: MAG SULF 2000 MG/WATER PREMIX 50 ML IV SCH (14:50)
[2023-12-15] MEDS: AMINO ACIDS 8.5% IV SCH (19:48)
[2023-12-15] MEDS: DEXTROSE 50% IV SCH (19:48)
[2023-12-16] VITALS (30 sets, daily range): BP systolic 89–174; BP diastolic 52–93; PULSE 63–129; RESP 16–33; TEMP 96.1–99.6; O2SAT 94–100
[2023-12-16 05:52] LABS: ALANINE AMINOTRANSFERASE 44 U/L (12-78); ALBUMIN 1.7 g/dL (3.4-5.0); ALKALINE PHOSPHATASE 94 U/L (50-136); ANION GAP 9.3 (8-16); ASPARTATE AMINOTRANSFERASE 65 U/L (15-37); CALCIUM 8.1 mg/dL (8.5-10.1); CHLORIDE 108 mmol/L (98-107); CREATININE 0.7 mg/dL (0.6-1.3); GLUCOSE 149 mg/dL (74-106); MAGNESIUM 2.6 mg/dL (1.8-2.4); POTASSIUM 4.3 mmol/L (3.5-5.1); SODIUM SERUM 144 mmol/L (136-145); TOTAL BILIRUBIN 5.3 mg/dL (0.0-1.0); TOTAL PROTEIN, SERUM 4.9 g/dL (6.4-8.2); UREA NITROGEN, BLOOD 30 mg/dL (7-18)
[2023-12-16 07:06] LABS: BASOPHILS % (AUTO) 0.4 % (0.0-2.0); EOSINOPHILS # (AUTO) 0.1 K/uL (0-0.4); EOSINOPHILS % (AUTO) 0.9 % (0.0-4.0); HEMATOCRIT 27.1 % (36-52); HEMOGLOBIN 9.1 g/dL (12.0-18.0); LYMPHOCYTES # (AUTO) 1.1 K/uL (2.0-11.5); LYMPHOCYTES % (AUTO) 9.4 % (20.5-51.1); MEAN CORPUSCULAR HEMOGLOBIN 31 pg (27-31); MEAN CORPUSCULAR HGB CONC 34 g/dL (33-37); MEAN CORPUSCULAR VOLUME 93.4 fL (80-94); MONOCYTES # (AUTO) 0.6 K/uL (0.8-1.0); NEUTROPHILS # (AUTO) 9.7 K/uL (1.8-7.7); NEUTROPHILS % (AUTO) 84.3 % (42.2-75.2); PLATELET COUNT (AUTO) 154 K/uL (140-450); RED CELL DISTRIBUTION WIDTH 16.1 % (11.6-13.7); WHITE BLOOD COUNT (AUTO) 11.5 K/uL (4.8-10.8)
[2023-12-16] MEDS ORDERED: GAUZE TP PRN (13:35)
[2023-12-16] MEDS ORDERED: SEVOFLURANE 250 ML BTL INH ONE (18:00)
[2023-12-16] MEDS: ROCURONIUM 50 MG/5 ML VIAL IV ONE (19:30)
[2023-12-16] MEDS: fentaNYL citrate 0.05 MG/ML VIAL ONE ×3 (19:30→19:34)
[2023-12-16] MEDS: ONDANSETRON 4 MG/2 ML VIAL ONE (19:30)
[2023-12-16] MEDS: PROPOFOL 200 MG/20 ML VIAL IV ONE (19:30)
[2023-12-16] MEDS: PHENYLEPHRINE 10 MG/ML VIAL ONE (19:33)
[2023-12-16] MEDS: ePHEDrine 50 MG/ML VIAL ONE (19:34)
[2023-12-16] MEDS: CALCIUM CHLORIDE 10% 100 MG/ML SYR IVP ONE (19:34)
[2023-12-16] MEDS: ESMOLOL 10 ML IV ONE (20:43)
[2023-12-17] VITALS (29 sets, daily range): BP systolic 88–157; BP diastolic 42–103; PULSE 87–137; RESP 18–38; TEMP 96–99.3; O2SAT 94–100
[2023-12-17] MEDS: GAUZE TP SCH (00:41)
[2023-12-17] MEDS: NOREPINEPHRINE 4 MG/4 ML VIAL IV ONE (03:59)
[2023-12-17] MEDS: MORPHINE SULFATE 4 MG/ML SYR IVP PRN (04:36)
[2023-12-17 05:22] LABS: ANION GAP 12.8 (8-16); CALCIUM 8.2 mg/dL (8.5-10.1); CARBON DIOXIDE 27.5 mmol/L (21-32); CHLORIDE 108 mmol/L (98-107); CREATININE 1.5 mg/dL (0.6-1.3); GLUCOSE 154 mg/dL (74-106); POTASSIUM 5.3 mmol/L (3.5-5.1); SODIUM SERUM 143 mmol/L (136-145); UREA NITROGEN, BLOOD 42 mg/dL (7-18)
[2023-12-17 05:25] LABS: MAGNESIUM 2.4 mg/dL (1.8-2.4); PHOSPHORUS 5.5 mg/dL (2.5-4.9)
[2023-12-17 05:26] LABS: BASOPHILS % (AUTO) 0.2 % (0.0-2.0); EOSINOPHILS % (AUTO) 0.1 % (0.0-4.0); HEMATOCRIT 29.3 % (36-52); HEMOGLOBIN 9.6 g/dL (12.0-18.0); LYMPHOCYTES # (AUTO) 0.6 K/uL (2.0-11.5); LYMPHOCYTES % (AUTO) 3.8 % (20.5-51.1); MEAN CORPUSCULAR HEMOGLOBIN 31 pg (27-31); MEAN CORPUSCULAR HGB CONC 33 g/dL (33-37); MEAN CORPUSCULAR VOLUME 94.8 fL (80-94); MONOCYTES # (AUTO) 0.7 K/uL (0.8-1.0); MONOCYTES % (AUTO) 4.3 % (1.7-9.3); NEUTROPHILS # (AUTO) 15.8 K/uL (1.8-7.7); NEUTROPHILS % (AUTO) 91.6 % (42.2-75.2); PLATELET COUNT (AUTO) 195 K/uL (140-450); RED BLOOD CELL COUNT(AUTO) 3.09 MIL/uL (4.20-6.10); RED CELL DISTRIBUTION WIDTH 16.2 % (11.6-13.7); WHITE BLOOD COUNT (AUTO) 17.2 K/uL (4.8-10.8)
[2023-12-17] MEDS: FUROSEMIDE 40 MG/4 ML VIAL IVP SCH (08:15)
[2023-12-17 11:43] LABS: ANION GAP 17.8 (8-16); CALCIUM 7.8 mg/dL (8.5-10.1); CARBON DIOXIDE 24.2 mmol/L (21-32); CHLORIDE 105 mmol/L (98-107); CREATININE 1.8 mg/dL (0.6-1.3); GLUCOSE 211 mg/dL (74-106); SODIUM SERUM 141 mmol/L (136-145); UREA NITROGEN, BLOOD 49 mg/dL (7-18)
[2023-12-17 11:47] LABS: ALBUMIN 1.3 g/dL (3.4-5.0); MAGNESIUM 2.5 mg/dL (1.8-2.4)
[2023-12-17] MEDS: CALCIUM GLUC 1 GM/50 mL NS BAG 50 ML IV SCH (13:21)
[2023-12-17] MEDS: FUROSEMIDE 100 MG/10 ML VIAL IV SCH (13:44)
[2023-12-17] MEDS: DEXTROSE 50% 50 ML SYR IVP SCH (13:57)
[2023-12-17] MEDS: INSULIN REGULAR, HUMAN 100 UNIT/ML VIAL IVP SCH (14:16)
[2023-12-17] MEDS: NACL 0.9% 1,000 ML IV ONE (19:43)
[2023-12-17] MEDS: DEXMEDETOMIDINE HCL 100 MCG/ML 2 ML VIAL IV ONE (22:26)
[2023-12-18] VITALS (33 sets, daily range): BP systolic 85–166; BP diastolic 43–91; PULSE 52–115; RESP 13–30; TEMP 96.9–97.6; O2SAT 92–100
[2023-12-18 05:23] LABS: BASOPHILS % (AUTO) 0.1 % (0.0-2.0); EOSINOPHILS % (AUTO) 0.1 % (0.0-4.0); HEMATOCRIT 24.5 % (36-52); HEMOGLOBIN 8.2 g/dL (12.0-18.0); LYMPHOCYTES # (AUTO) 0.9 K/uL (2.0-11.5); LYMPHOCYTES % (AUTO) 5.4 % (20.5-51.1); MEAN CORPUSCULAR HEMOGLOBIN 31 pg (27-31); MEAN CORPUSCULAR HGB CONC 33 g/dL (33-37); MEAN CORPUSCULAR VOLUME 93.8 fL (80-94); MONOCYTES # (AUTO) 0.9 K/uL (0.8-1.0); MONOCYTES % (AUTO) 5.4 % (1.7-9.3); NEUTROPHILS # (AUTO) 14.2 K/uL (1.8-7.7); PLATELET COUNT (AUTO) 193 K/uL (140-450); RED BLOOD CELL COUNT(AUTO) 2.61 MIL/uL (4.20-6.10); RED CELL DISTRIBUTION WIDTH 16.5 % (11.6-13.7)
[2023-12-18 05:49] LABS: ANION GAP 11.1 (8-16); CALCIUM 7.7 mg/dL (8.5-10.1); CARBON DIOXIDE 28.3 mmol/L (21-32); CHLORIDE 102 mmol/L (98-107); CREATININE 1.7 mg/dL (0.6-1.3); GLUCOSE 169 mg/dL (74-106); POTASSIUM 4.4 mmol/L (3.5-5.1); SODIUM SERUM 137 mmol/L (136-145); UREA NITROGEN, BLOOD 41 mg/dL (7-18)
[2023-12-18 05:59] LABS: MAGNESIUM 2.1 mg/dL (1.8-2.4); PHOSPHORUS 4.8 mg/dL (2.5-4.9)
[2023-12-18] MEDS ORDERED: GAUZE TP PRN ×2 (14:05)
[2023-12-18 16:57] LABS: ANION GAP 11.3 (8-16); CALCIUM 7.1 mg/dL (8.5-10.1); CARBON DIOXIDE 27.5 mmol/L (21-32); CHLORIDE 101 mmol/L (98-107); CREATININE 2.1 mg/dL (0.6-1.3); GLUCOSE 155 mg/dL (74-106); POTASSIUM 3.8 mmol/L (3.5-5.1); SODIUM SERUM 136 mmol/L (136-145); UREA NITROGEN, BLOOD 47 mg/dL (7-18)
[2023-12-18] MEDS: TOBRAMYCIN 80 MG/2 ML VIAL IV ONE (18:00)
[2023-12-18] MEDS ORDERED: TOBRAMYCIN PER PHARMACY MC PRN (19:30)
[2023-12-18] MEDS: NACL 0.9% 100 ML IV ONE (19:40)
[2023-12-18] MEDS ORDERED: TOBRAMYCIN 80 MG/2 ML VIAL ONE ×6 (21:46→23:52)
[2023-12-18] MEDS ORDERED: NACL 0.9% IV ONE (22:35)
[2023-12-18] MEDS ORDERED: TOBRAMYCIN IV ONE (22:35)
[2023-12-18] MEDS: TOBRAMYCIN IV ONE (23:56)
[2023-12-18] MEDS: NACL 0.9% IV ONE (23:56)
[2023-12-19] VITALS (37 sets, daily range): BP systolic 105–187; BP diastolic 50–93; PULSE 62–114; RESP 14–24; TEMP 97.3–98.4; O2SAT 89–100
[2023-12-19] MEDS: GAUZE TP SCH ×2 (01:08→13:00)
[2023-12-19 05:43] LABS: ALANINE AMINOTRANSFERASE 50 U/L (12-78); ALBUMIN 1.1 g/dL (3.4-5.0); ALKALINE PHOSPHATASE 97 U/L (50-136); ANION GAP 12.1 (8-16); ASPARTATE AMINOTRANSFERASE 87 U/L (15-37); CALCIUM 7.3 mg/dL (8.5-10.1); CARBON DIOXIDE 28.2 mmol/L (21-32); CHLORIDE 100 mmol/L (98-107); CREATININE 2.2 mg/dL (0.6-1.3); GLUCOSE 137 mg/dL (74-106); POTASSIUM 3.3 mmol/L (3.5-5.1); SODIUM SERUM 137 mmol/L (136-145); TOTAL BILIRUBIN 5.7 mg/dL (0.0-1.0); TOTAL PROTEIN, SERUM 4.4 g/dL (6.4-8.2); UREA NITROGEN, BLOOD 53 mg/dL (7-18)
[2023-12-19 06:39] LABS: MAGNESIUM 1.9 mg/dL (1.8-2.4); PHOSPHORUS 4.1 mg/dL (2.5-4.9)
[2023-12-19] MEDS: KCL 20 MEQ IN 100 mL PREMIX 100 ML IV PRN (16:46)
[2023-12-19] MEDS: AMINO ACIDS 8.5% IV SCH (20:13)
[2023-12-19] MEDS: DEXTROSE 50% IV SCH (20:13)
[2023-12-19] MEDS: fentaNYL citrate 1 MG in NACL 0.9% 80 ML IV PRN (20:20)
[2023-12-19 21:16] LABS: ANION GAP 9.8 (8-16); CALCIUM 7.3 mg/dL (8.5-10.1); CARBON DIOXIDE 28.5 mmol/L (21-32); CHLORIDE 101 mmol/L (98-107); CREATININE 2.1 mg/dL (0.6-1.3); GLUCOSE 118 mg/dL (74-106); POTASSIUM 3.3 mmol/L (3.5-5.1); SODIUM SERUM 136 mmol/L (136-145); UREA NITROGEN, BLOOD 52 mg/dL (7-18)
[2023-12-19] MEDS: KCL 20 MEQ IN 100 mL PREMIX 200 ML IV PRN (23:16)
[2023-12-20] VITALS (38 sets, daily range): BP systolic 109–156; BP diastolic 45–72; PULSE 55–82; RESP 14–21; TEMP 96.9–97.8; O2SAT 97–100
[2023-12-20 05:21] LABS: BASOPHILS % (AUTO) 0.1 % (0.0-2.0); EOSINOPHILS # (AUTO) 0.1 K/uL (0-0.4); EOSINOPHILS % (AUTO) 0.9 % (0.0-4.0); LYMPHOCYTES # (AUTO) 0.5 K/uL (2.0-11.5); LYMPHOCYTES % (AUTO) 4.5 % (20.5-51.1); MEAN CORPUSCULAR HEMOGLOBIN 31 pg (27-31); MEAN CORPUSCULAR HGB CONC 34 g/dL (33-37); MEAN CORPUSCULAR VOLUME 92.3 fL (80-94); MONOCYTES # (AUTO) 0.3 K/uL (0.8-1.0); MONOCYTES % (AUTO) 3.1 % (1.7-9.3); NEUTROPHILS # (AUTO) 10.1 K/uL (1.8-7.7); NEUTROPHILS % (AUTO) 91.4 % (42.2-75.2); PLATELET COUNT (AUTO) 162 K/uL (140-450); RED BLOOD CELL COUNT(AUTO) 2.14 MIL/uL (4.20-6.10); RED CELL DISTRIBUTION WIDTH 16.3 % (11.6-13.7); WHITE BLOOD COUNT (AUTO) 11.1 K/uL (4.8-10.8)
[2023-12-20 05:32] LABS: ANION GAP 10.3 (8-16); CALCIUM 7.1 mg/dL (8.5-10.1); CHLORIDE 100 mmol/L (98-107); CREATININE 2.1 mg/dL (0.6-1.3); GLUCOSE 304 mg/dL (74-106); POTASSIUM 4.3 mmol/L (3.5-5.1); SODIUM SERUM 134 mmol/L (136-145); UREA NITROGEN, BLOOD 49 mg/dL (7-18)
[2023-12-20 05:50] LABS: HEMATOCRIT 19.7 % (36-52); HEMOGLOBIN 6.6 g/dL (12.0-18.0)
[2023-12-20 06:32] LABS: MAGNESIUM 1.8 mg/dL (1.8-2.4); PHOSPHORUS 3.6 mg/dL (2.5-4.9)
[2023-12-20] MEDS: ALBUTEROL SULFATE/IPRATROPIU 3 ML SOL IH SCH (15:16)
[2023-12-20] MEDS: MAG SULF 2000 MG/WATER PREMIX 50 ML IV SCH (16:14)
[2023-12-20 17:00] LABS: BLOOD GAS BASE EXCESS 3.1 mmol/L (-2.0-2.0); BLOOD GAS HCO3 26.5 mmol/L (22-26); BLOOD GAS O2 SAT% 93.6 % (92.0-98.5); BLOOD GAS PCO2 35.9 mmHg (35-45); BLOOD GAS PH 7.486 (7.35-7.45); BLOOD GAS PO2 68.1 mmHg (75-100)
[2023-12-20 19:59] LABS: BASOPHILS % (AUTO) 0.2 % (0.0-2.0); EOSINOPHILS # (AUTO) 0.1 K/uL (0-0.4); EOSINOPHILS % (AUTO) 0.9 % (0.0-4.0); HEMATOCRIT 26.9 % (36-52); HEMOGLOBIN 9.3 g/dL (12.0-18.0); LYMPHOCYTES # (AUTO) 0.8 K/uL (2.0-11.5); LYMPHOCYTES % (AUTO) 5.6 % (20.5-51.1); MEAN CORPUSCULAR HEMOGLOBIN 32 pg (27-31); MEAN CORPUSCULAR HGB CONC 35 g/dL (33-37); MEAN CORPUSCULAR VOLUME 90.9 fL (80-94); MONOCYTES # (AUTO) 0.4 K/uL (0.8-1.0); MONOCYTES % (AUTO) 2.8 % (1.7-9.3); NEUTROPHILS % (AUTO) 90.5 % (42.2-75.2); PLATELET COUNT (AUTO) 196 K/uL (140-450); RED BLOOD CELL COUNT(AUTO) 2.96 MIL/uL (4.20-6.10); RED CELL DISTRIBUTION WIDTH 15.9 % (11.6-13.7); WHITE BLOOD COUNT (AUTO) 14.4 K/uL (4.8-10.8)
[2023-12-20 20:15] LABS: ANION GAP 10.5 (8-16); CALCIUM 7.4 mg/dL (8.5-10.1); CARBON DIOXIDE 29.5 mmol/L (21-32); CHLORIDE 99 mmol/L (98-107); CREATININE 1.9 mg/dL (0.6-1.3); GLUCOSE 132 mg/dL (74-106); SODIUM SERUM 136 mmol/L (136-145); UREA NITROGEN, BLOOD 50 mg/dL (7-18)
[2023-12-21] VITALS (37 sets, daily range): BP systolic 93–177; BP diastolic 50–109; PULSE 64–121; RESP 13–24; TEMP 97–98.6; O2SAT 97–100
[2023-12-21 05:55] LABS: MAGNESIUM 2.1 mg/dL (1.8-2.4); PHOSPHORUS 3.3 mg/dL (2.5-4.9)
[2023-12-21 05:57] LABS: ALANINE AMINOTRANSFERASE 33 U/L (12-78); ALBUMIN 1.2 g/dL (3.4-5.0); ALKALINE PHOSPHATASE 134 U/L (50-136); ANION GAP 10.2 (8-16); ASPARTATE AMINOTRANSFERASE 45 U/L (15-37); CALCIUM 7.7 mg/dL (8.5-10.1); CARBON DIOXIDE 30.2 mmol/L (21-32); CHLORIDE 99 mmol/L (98-107); CREATININE 1.7 mg/dL (0.6-1.3); GLUCOSE 147 mg/dL (74-106); POTASSIUM 3.4 mmol/L (3.5-5.1); SODIUM SERUM 136 mmol/L (136-145); TOTAL BILIRUBIN 5.4 mg/dL (0.0-1.0); TOTAL PROTEIN, SERUM 5.1 g/dL (6.4-8.2); UREA NITROGEN, BLOOD 49 mg/dL (7-18)
[2023-12-21 06:19] LABS: HEMATOCRIT 27.5 % (36-52); HEMOGLOBIN 9.6 g/dL (12.0-18.0); MEAN CORPUSCULAR HEMOGLOBIN 32 pg (27-31); MEAN CORPUSCULAR HGB CONC 35 g/dL (33-37); MEAN CORPUSCULAR VOLUME 90.8 fL (80-94); PLATELET COUNT (AUTO) 228 K/uL (140-450); RED BLOOD CELL COUNT(AUTO) 3.03 MIL/uL (4.20-6.10); RED CELL DISTRIBUTION WIDTH 15.9 % (11.6-13.7); WHITE BLOOD COUNT (AUTO) 15.2 K/uL (4.8-10.8)
[2023-12-21 07:46] LABS: LYMPHOCYTES % (MANUAL) 3 % (20-46); MONOCYTES % (MANUAL) 4 % (5-12)
[2023-12-21 07:47] LABS: EOSINOPHILS % (MANUAL) 1 % (0-4)
[2023-12-21] MEDS ORDERED: HALOPERIDOL IM 5 MG/ML VIAL IM PRN (10:10)
[2023-12-21 12:55] LABS: BLOOD GAS BASE EXCESS 6.2 mmol/L (-2.0-2.0); BLOOD GAS HCO3 29.2 mmol/L (22-26); BLOOD GAS O2 SAT% 94.6 % (92.0-98.5); BLOOD GAS PCO2 35.8 mmHg (35-45); BLOOD GAS PH 7.529 (7.35-7.45); BLOOD GAS PO2 71.7 mmHg (75-100)
[2023-12-21] MEDS: KCL 20 MEQ IN 100 mL PREMIX 100 ML IV SCH (16:05)
[2023-12-21] MEDS: AMINO ACIDS 8.5% IV SCH (19:55)
[2023-12-21] MEDS: DEXTROSE 50% IV SCH (19:55)
[2023-12-21 22:43] LABS: ANION GAP 9.6 (8-16); CALCIUM 7.7 mg/dL (8.5-10.1); CARBON DIOXIDE 31.8 mmol/L (21-32); CHLORIDE 99 mmol/L (98-107); CREATININE 1.6 mg/dL (0.6-1.3); GLUCOSE 148 mg/dL (74-106); POTASSIUM 3.4 mmol/L (3.5-5.1); SODIUM SERUM 137 mmol/L (136-145); UREA NITROGEN, BLOOD 42 mg/dL (7-18)
[2023-12-22] VITALS (31 sets, daily range): BP systolic 113–140; BP diastolic 64–93; PULSE 71–141; RESP 13–37; TEMP 97.1–98.1; O2SAT 95–100
[2023-12-22 04:53] LABS: BASOPHILS # (AUTO) 0.1 K/uL (0.00-0.22); BASOPHILS % (AUTO) 0.5 % (0.0-2.0); EOSINOPHILS # (AUTO) 0.1 K/uL (0-0.4); EOSINOPHILS % (AUTO) 0.5 % (0.0-4.0); LYMPHOCYTES # (AUTO) 0.7 K/uL (2.0-11.5); LYMPHOCYTES % (AUTO) 4.5 % (20.5-51.1); MEAN CORPUSCULAR HEMOGLOBIN 31 pg (27-31); MEAN CORPUSCULAR HGB CONC 34 g/dL (33-37); MEAN CORPUSCULAR VOLUME 90.4 fL (80-94); MONOCYTES # (AUTO) 0.5 K/uL (0.8-1.0); MONOCYTES % (AUTO) 3.4 % (1.7-9.3); NEUTROPHILS # (AUTO) 13.9 K/uL (1.8-7.7); NEUTROPHILS % (AUTO) 91.1 % (42.2-75.2); PLATELET COUNT (AUTO) 296 K/uL (140-450); RED BLOOD CELL COUNT(AUTO) 3.21 MIL/uL (4.20-6.10); RED CELL DISTRIBUTION WIDTH 15.6 % (11.6-13.7); WHITE BLOOD COUNT (AUTO) 15.3 K/uL (4.8-10.8)
[2023-12-22 05:18] LABS: ALANINE AMINOTRANSFERASE 35 U/L (12-78); ALBUMIN 1.3 g/dL (3.4-5.0); ALKALINE PHOSPHATASE 156 U/L (50-136); ANION GAP 6.7 (8-16); ASPARTATE AMINOTRANSFERASE 47 U/L (15-37); CALCIUM 7.9 mg/dL (8.5-10.1); CARBON DIOXIDE 34.3 mmol/L (21-32); CHLORIDE 100 mmol/L (98-107); CREATININE 1.4 mg/dL (0.6-1.3); GLUCOSE 158 mg/dL (74-106); SODIUM SERUM 138 mmol/L (136-145); TOTAL BILIRUBIN 6.8 mg/dL (0.0-1.0); TOTAL PROTEIN, SERUM 5.6 g/dL (6.4-8.2); UREA NITROGEN, BLOOD 40 mg/dL (7-18)
[2023-12-22 05:53] LABS: MAGNESIUM 1.8 mg/dL (1.8-2.4); PHOSPHORUS 2.7 mg/dL (2.5-4.9)
[2023-12-22] MEDS ORDERED: MORPHINE SULFATE 4 MG/ML SYR IVP PRN (13:45)
[2023-12-22] MEDS: METOPROLOL 5 MG/5 ML VIAL IV SCH (15:02)
[2023-12-22] MEDS: TOBRAMYCIN 120 MG in DEXTROSE 5% 100 ML IV SCH (17:19)
[2023-12-22] MEDS: METOPROLOL 50 MG TAB PO SCH (20:03)
[2023-12-23] VITALS (30 sets, daily range): BP systolic 92–129; BP diastolic 61–76; PULSE 73–125; RESP 14–28; TEMP 97–97.7; O2SAT 96–100
[2023-12-23 04:52] LABS: BASOPHILS # (AUTO) 0.1 K/uL (0.00-0.22); BASOPHILS % (AUTO) 0.4 % (0.0-2.0); EOSINOPHILS # (AUTO) 0.2 K/uL (0-0.4); HEMATOCRIT 28.4 % (36-52); HEMOGLOBIN 9.5 g/dL (12.0-18.0); LYMPHOCYTES # (AUTO) 0.8 K/uL (2.0-11.5); MEAN CORPUSCULAR HEMOGLOBIN 31 pg (27-31); MEAN CORPUSCULAR HGB CONC 33 g/dL (33-37); MEAN CORPUSCULAR VOLUME 92.3 fL (80-94); MONOCYTES # (AUTO) 0.5 K/uL (0.8-1.0); MONOCYTES % (AUTO) 3.1 % (1.7-9.3); NEUTROPHILS # (AUTO) 14.1 K/uL (1.8-7.7); NEUTROPHILS % (AUTO) 90.5 % (42.2-75.2); PLATELET COUNT (AUTO) 333 K/uL (140-450); RED BLOOD CELL COUNT(AUTO) 3.08 MIL/uL (4.20-6.10); RED CELL DISTRIBUTION WIDTH 15.6 % (11.6-13.7); WHITE BLOOD COUNT (AUTO) 15.6 K/uL (4.8-10.8)
[2023-12-23 05:13] LABS: ALANINE AMINOTRANSFERASE 29 U/L (12-78); ALBUMIN 1.2 g/dL (3.4-5.0); ALKALINE PHOSPHATASE 144 U/L (50-136); ANION GAP 4.9 (8-16); ASPARTATE AMINOTRANSFERASE 42 U/L (15-37); CALCIUM 7.7 mg/dL (8.5-10.1); CARBON DIOXIDE 37.1 mmol/L (21-32); CHLORIDE 100 mmol/L (98-107); CREATININE 1.1 mg/dL (0.6-1.3); GLUCOSE 137 mg/dL (74-106); SODIUM SERUM 139 mmol/L (136-145); TOTAL BILIRUBIN 6.2 mg/dL (0.0-1.0); TOTAL PROTEIN, SERUM 5.3 g/dL (6.4-8.2); UREA NITROGEN, BLOOD 31 mg/dL (7-18)
[2023-12-23 05:27] LABS: MAGNESIUM 1.7 mg/dL (1.8-2.4)
[2023-12-23 05:28] LABS: PHOSPHORUS 2.6 mg/dL (2.5-4.9)
[2023-12-23] MEDS: FUROSEMIDE 20 MG/2 ML VIAL IVP SCH (08:06)
[2023-12-24] VITALS (9 sets, daily range): BP systolic 90–121; BP diastolic 58–74; PULSE 64–143; RESP 18–30; TEMP 97–98.5; O2SAT 90–100
[2023-12-24 05:34] LABS: ALANINE AMINOTRANSFERASE 30 U/L (12-78); ALBUMIN 1.2 g/dL (3.4-5.0); ALKALINE PHOSPHATASE 166 U/L (50-136); ANION GAP 8.3 (8-16); ASPARTATE AMINOTRANSFERASE 45 U/L (15-37); CALCIUM 7.6 mg/dL (8.5-10.1); CARBON DIOXIDE 34.1 mmol/L (21-32); CHLORIDE 100 mmol/L (98-107); POTASSIUM 4.4 mmol/L (3.5-5.1); SODIUM SERUM 138 mmol/L (136-145); TOTAL PROTEIN, SERUM 5.4 g/dL (6.4-8.2); UREA NITROGEN, BLOOD 29 mg/dL (7-18)
[2023-12-24 05:52] LABS: GLUCOSE 427 mg/dL (74-106)
[2023-12-24 05:59] LABS: MAGNESIUM 2.1 mg/dL (1.8-2.4); PHOSPHORUS 2.9 mg/dL (2.5-4.9)
[2023-12-24 09:03] LABS: HEMATOCRIT 28.8 % (36-52); HEMOGLOBIN 9.4 g/dL (12.0-18.0); MEAN CORPUSCULAR HEMOGLOBIN 31 pg (27-31); MEAN CORPUSCULAR HGB CONC 33 g/dL (33-37); MEAN CORPUSCULAR VOLUME 93.9 fL (80-94); PLATELET COUNT (AUTO) 346 K/uL (140-450); RED BLOOD CELL COUNT(AUTO) 3.07 MIL/uL (4.20-6.10); RED CELL DISTRIBUTION WIDTH 15.9 % (11.6-13.7); WHITE BLOOD COUNT (AUTO) 15.1 K/uL (4.8-10.8)
[2023-12-24 09:46] LABS: EOSINOPHILS % (MANUAL) 1 % (0-4); METAMYELOCYTES % 1 % (0-0); MONOCYTES % (MANUAL) 4 % (5-12); MYELOCYTES % 1 % (0-0)
[2023-12-24 09:47] LABS: LYMPHOCYTES % (MANUAL) 8 % (20-46)
[2023-12-24 09:48] LABS: PLATELET ESTIMATE ADEQUATE
[2023-12-24] MEDS ORDERED: GAUZE TP PRN (14:00)
[2023-12-24] MEDS: DEXTROSE IV SCH (20:34)
[2023-12-24] MEDS: MULTIVITAMIN IV SCH (20:34)
[2023-12-24] MEDS: AMINO ACIDS 8.5% IV SCH (20:34)
[2023-12-24] MEDS ORDERED: SUCCINYLCHOLINE CHLORIDE 200 MG/10 ML VIAL IVP ONE (22:35)
[2023-12-24] MEDS ORDERED: SEVOFLURANE 250 ML BTL INH ONE (22:35)
[2023-12-25] VITALS (33 sets, daily range): BP systolic 90–167; BP diastolic 51–96; PULSE 88–137; RESP 15–32; TEMP 96.5–98; O2SAT 90–100
[2023-12-25] MEDS ORDERED: NOREPINEPHRINE 8 MG in DEXTROSE 5% 250 ML IV PRN
[2023-12-25] MEDS: fentaNYL citrate 0.05 MG/ML VIAL ONE (01:21)
[2023-12-25] MEDS: fentaNYL citrate 1 MG in NACL 0.9% 80 ML IV PRN (01:33)
[2023-12-25 05:53] LABS: BASOPHILS # (AUTO) 0.1 K/uL (0.00-0.22); BASOPHILS % (AUTO) 0.3 % (0.0-2.0); EOSINOPHILS # (AUTO) 0.1 K/uL (0-0.4); EOSINOPHILS % (AUTO) 0.3 % (0.0-4.0); HEMATOCRIT 28.5 % (36-52); HEMOGLOBIN 9.5 g/dL (12.0-18.0); LYMPHOCYTES # (AUTO) 0.9 K/uL (2.0-11.5); LYMPHOCYTES % (AUTO) 4.6 % (20.5-51.1); MEAN CORPUSCULAR HEMOGLOBIN 31 pg (27-31); MEAN CORPUSCULAR HGB CONC 33 g/dL (33-37); MEAN CORPUSCULAR VOLUME 92.8 fL (80-94); MONOCYTES # (AUTO) 0.7 K/uL (0.8-1.0); MONOCYTES % (AUTO) 3.8 % (1.7-9.3); NEUTROPHILS # (AUTO) 17.6 K/uL (1.8-7.7); PLATELET COUNT (AUTO) 383 K/uL (140-450); RED BLOOD CELL COUNT(AUTO) 3.07 MIL/uL (4.20-6.10); RED CELL DISTRIBUTION WIDTH 15.5 % (11.6-13.7); WHITE BLOOD COUNT (AUTO) 19.3 K/uL (4.8-10.8)
[2023-12-25 06:23] LABS: MAGNESIUM 1.8 mg/dL (1.8-2.4); PHOSPHORUS 3.1 mg/dL (2.5-4.9)
[2023-12-25 06:50] LABS: ALANINE AMINOTRANSFERASE 34 U/L (12-78); ALBUMIN 1.3 g/dL (3.4-5.0); ALKALINE PHOSPHATASE 195 U/L (50-136); ANION GAP 7.4 (8-16); ASPARTATE AMINOTRANSFERASE 47 U/L (15-37); CALCIUM 7.8 mg/dL (8.5-10.1); CARBON DIOXIDE 33.3 mmol/L (21-32); CHLORIDE 105 mmol/L (98-107); CREATININE 1.1 mg/dL (0.6-1.3); GLUCOSE 152 mg/dL (74-106); POTASSIUM 3.7 mmol/L (3.5-5.1); SODIUM SERUM 142 mmol/L (136-145); TOTAL BILIRUBIN 4.5 mg/dL (0.0-1.0); TOTAL PROTEIN, SERUM 5.7 g/dL (6.4-8.2); UREA NITROGEN, BLOOD 33 mg/dL (7-18)
[2023-12-25] MEDS ORDERED: NACL 0.9% 500 ML IV SCH (08:45)
[2023-12-25] MEDS: NACL 0.9% 1,000 ML IV SCH (10:03)
[2023-12-25] MEDS ORDERED: PROPOFOL 1000 MG/100 ML PREMIX 100 ML IV PRN (10:15)
[2023-12-25] MEDS: ALBUMIN HUMAN 25% 100 ML IV SCH (10:16)
[2023-12-25] MEDS: TOBRAMYCIN 120 MG in DEXTROSE 5% 100 ML IV SCH (12:34)
[2023-12-25] MEDS: GAUZE TP SCH (12:35)
[2023-12-25] MEDS: DEXTROSE 50% IV SCH (21:38)
[2023-12-25] MEDS: AMINO ACIDS 8.5% IV SCH (21:38)
[2023-12-26] VITALS (33 sets, daily range): BP systolic 94–167; BP diastolic 60–99; PULSE 84–124; RESP 14–29; TEMP 97.9–99.5; O2SAT 96–100
[2023-12-26 05:53] LABS: BASOPHILS % (AUTO) 0.3 % (0.0-2.0); EOSINOPHILS # (AUTO) 0.1 K/uL (0-0.4); EOSINOPHILS % (AUTO) 0.7 % (0.0-4.0); HEMATOCRIT 21.3 % (36-52); HEMOGLOBIN 7.3 g/dL (12.0-18.0); LYMPHOCYTES # (AUTO) 0.9 K/uL (2.0-11.5); LYMPHOCYTES % (AUTO) 5.8 % (20.5-51.1); MEAN CORPUSCULAR HEMOGLOBIN 32 pg (27-31); MEAN CORPUSCULAR HGB CONC 34 g/dL (33-37); MEAN CORPUSCULAR VOLUME 92.8 fL (80-94); MONOCYTES # (AUTO) 0.5 K/uL (0.8-1.0); MONOCYTES % (AUTO) 3.3 % (1.7-9.3); NEUTROPHILS # (AUTO) 13.6 K/uL (1.8-7.7); NEUTROPHILS % (AUTO) 89.9 % (42.2-75.2); PLATELET COUNT (AUTO) 322 K/uL (140-450); RED CELL DISTRIBUTION WIDTH 15.9 % (11.6-13.7); WHITE BLOOD COUNT (AUTO) 15.1 K/uL (4.8-10.8)
[2023-12-26 06:02] LABS: MAGNESIUM 1.8 mg/dL (1.8-2.4); PHOSPHORUS 2.1 mg/dL (2.5-4.9)
[2023-12-26 08:09] LABS: ALANINE AMINOTRANSFERASE 26 U/L (12-78); ALBUMIN 2.4 g/dL (3.4-5.0); ALKALINE PHOSPHATASE 149 U/L (50-136); ANION GAP 12.9 (8-16); ASPARTATE AMINOTRANSFERASE 39 U/L (15-37); CALCIUM 7.8 mg/dL (8.5-10.1); CARBON DIOXIDE 26.9 mmol/L (21-32); CHLORIDE 109 mmol/L (98-107); CREATININE 0.9 mg/dL (0.6-1.3); GLUCOSE 115 mg/dL (74-106); SODIUM SERUM 146 mmol/L (136-145); TOTAL BILIRUBIN 4.8 mg/dL (0.0-1.0); TOTAL PROTEIN, SERUM 5.3 g/dL (6.4-8.2); UREA NITROGEN, BLOOD 23 mg/dL (7-18)
[2023-12-26 08:12] LABS: POTASSIUM 2.8 mmol/L (3.5-5.1)
[2023-12-26] MEDS ORDERED: NACL 0.45% 1,000 ML IV SCH (09:35)
[2023-12-26] MEDS: NACL 0.45% 1,000 ML IV SCH (11:55)
[2023-12-26] MEDS ORDERED: TOBRAMYCIN PER PHARMACY MC PRN (14:30)
[2023-12-26] MEDS: KCL 20 MEQ IN 100 mL PREMIX 100 ML IV SCH (15:26)
[2023-12-27] VITALS (37 sets, daily range): BP systolic 86–166; BP diastolic 44–86; PULSE 57–125; RESP 15–24; TEMP 97.9–98.6; O2SAT 25–100
[2023-12-27 05:38] LABS: BASOPHILS # (AUTO) 0.1 K/uL (0.00-0.22); BASOPHILS % (AUTO) 0.4 % (0.0-2.0); EOSINOPHILS # (AUTO) 0.2 K/uL (0-0.4); EOSINOPHILS % (AUTO) 1.2 % (0.0-4.0); HEMATOCRIT 21.6 % (36-52); HEMOGLOBIN 7.1 g/dL (12.0-18.0); LYMPHOCYTES # (AUTO) 1.1 K/uL (2.0-11.5); LYMPHOCYTES % (AUTO) 7.4 % (20.5-51.1); MEAN CORPUSCULAR HEMOGLOBIN 31 pg (27-31); MEAN CORPUSCULAR HGB CONC 33 g/dL (33-37); MEAN CORPUSCULAR VOLUME 93.3 fL (80-94); MONOCYTES # (AUTO) 0.5 K/uL (0.8-1.0); MONOCYTES % (AUTO) 3.6 % (1.7-9.3); NEUTROPHILS # (AUTO) 13.1 K/uL (1.8-7.7); NEUTROPHILS % (AUTO) 87.4 % (42.2-75.2); PLATELET COUNT (AUTO) 285 K/uL (140-450); RED BLOOD CELL COUNT(AUTO) 2.32 MIL/uL (4.20-6.10); RED CELL DISTRIBUTION WIDTH 15.5 % (11.6-13.7)
[2023-12-27 06:17] LABS: ALANINE AMINOTRANSFERASE 23 U/L (12-78); ALBUMIN 3.1 g/dL (3.4-5.0); ALKALINE PHOSPHATASE 136 U/L (50-136); ANION GAP 12.7 (8-16); ASPARTATE AMINOTRANSFERASE 31 U/L (15-37); CALCIUM 8.2 mg/dL (8.5-10.1); CARBON DIOXIDE 26.6 mmol/L (21-32); CHLORIDE 108 mmol/L (98-107); CREATININE 0.8 mg/dL (0.6-1.3); GLUCOSE 127 mg/dL (74-106); MAGNESIUM 1.8 mg/dL (1.8-2.4); PHOSPHORUS 1.7 mg/dL (2.5-4.9); POTASSIUM 3.3 mmol/L (3.5-5.1); SODIUM SERUM 144 mmol/L (136-145); TOTAL BILIRUBIN 4.7 mg/dL (0.0-1.0); TOTAL PROTEIN, SERUM 5.6 g/dL (6.4-8.2); UREA NITROGEN, BLOOD 17 mg/dL (7-18)
[2023-12-27] MEDS: TOBRAMYCIN 120 MG in DEXTROSE 5% 100 ML IV SCH (10:59)
[2023-12-27] MEDS: POTASSIUM PHOSPHATE 30 MM in NACL 0.9% 250 ML IV ONE (11:00)
[2023-12-27] MEDS: DEXMEDETOMIDINE HCL 400 MCG in NACL 0.9% 96 ML IV PRN (11:40)
[2023-12-28] VITALS (35 sets, daily range): BP systolic 104–150; BP diastolic 38–97; PULSE 64–87; RESP 13–26; TEMP 96.8–98.9; O2SAT 97–100
[2023-12-28 05:27] LABS: BASOPHILS # (AUTO) 0.1 K/uL (0.00-0.22); BASOPHILS % (AUTO) 0.7 % (0.0-2.0); EOSINOPHILS # (AUTO) 0.3 K/uL (0-0.4); EOSINOPHILS % (AUTO) 1.6 % (0.0-4.0); HEMOGLOBIN 7.4 g/dL (12.0-18.0); LYMPHOCYTES # (AUTO) 1.4 K/uL (2.0-11.5); LYMPHOCYTES % (AUTO) 8.8 % (20.5-51.1); MEAN CORPUSCULAR HEMOGLOBIN 30 pg (27-31); MEAN CORPUSCULAR HGB CONC 32 g/dL (33-37); MONOCYTES # (AUTO) 0.5 K/uL (0.8-1.0); MONOCYTES % (AUTO) 3.4 % (1.7-9.3); NEUTROPHILS # (AUTO) 13.7 K/uL (1.8-7.7); NEUTROPHILS % (AUTO) 85.5 % (42.2-75.2); PLATELET COUNT (AUTO) 271 K/uL (140-450); RED BLOOD CELL COUNT(AUTO) 2.45 MIL/uL (4.20-6.10); RED CELL DISTRIBUTION WIDTH 15.8 % (11.6-13.7)
[2023-12-28 05:37] LABS: ALANINE AMINOTRANSFERASE 25 U/L (12-78); ALBUMIN 2.2 g/dL (3.4-5.0); ALKALINE PHOSPHATASE 141 U/L (50-136); ANION GAP 14.7 (8-16); ASPARTATE AMINOTRANSFERASE 32 U/L (15-37); CALCIUM 7.5 mg/dL (8.5-10.1); CARBON DIOXIDE 25.8 mmol/L (21-32); CHLORIDE 103 mmol/L (98-107); CREATININE 0.8 mg/dL (0.6-1.3); GLUCOSE 120 mg/dL (74-106); MAGNESIUM 1.6 mg/dL (1.8-2.4); POTASSIUM 4.5 mmol/L (3.5-5.1); SODIUM SERUM 139 mmol/L (136-145); TOTAL BILIRUBIN 3.3 mg/dL (0.0-1.0); TOTAL PROTEIN, SERUM 5.2 g/dL (6.4-8.2); UREA NITROGEN, BLOOD 20 mg/dL (7-18)
[2023-12-28 10:56] LABS: BLOOD GAS BASE EXCESS -1.4 mmol/L (-2.0-2.0); BLOOD GAS PCO2 31.1 mmHg (35-45); BLOOD GAS PH 7.467 (7.35-7.45); BLOOD GAS PO2 78.5 mmHg (75-100)
[2023-12-28 10:57] LABS: BLOOD GAS O2 SAT% 95.3 % (92.0-98.5)
[2023-12-28] MEDS ORDERED: VANCOMYCIN PER PHARMACY MC PRN (14:05)
[2023-12-28] MEDS: MAG SULF 2000 MG/WATER PREMIX 50 ML IV SCH (14:15)
[2023-12-28] MEDS: VANCOMYCIN 750 MG in DEXTROSE 5% 250 ML IV SCH (15:55)
[2023-12-29] VITALS (33 sets, daily range): BP systolic 101–161; BP diastolic 28–76; PULSE 63–99; RESP 12–26; TEMP 96.8–98.4; O2SAT 10–100
[2023-12-29 04:26] LABS: BASOPHILS # (AUTO) 0.1 K/uL (0.00-0.22); BASOPHILS % (AUTO) 0.5 % (0.0-2.0); EOSINOPHILS # (AUTO) 0.2 K/uL (0-0.4); EOSINOPHILS % (AUTO) 1.2 % (0.0-4.0); HEMATOCRIT 21.5 % (36-52); HEMOGLOBIN 7.3 g/dL (12.0-18.0); LYMPHOCYTES # (AUTO) 1.6 K/uL (2.0-11.5); LYMPHOCYTES % (AUTO) 9.7 % (20.5-51.1); MEAN CORPUSCULAR HEMOGLOBIN 31 pg (27-31); MEAN CORPUSCULAR HGB CONC 34 g/dL (33-37); MEAN CORPUSCULAR VOLUME 92.4 fL (80-94); MONOCYTES # (AUTO) 0.5 K/uL (0.8-1.0); MONOCYTES % (AUTO) 3.2 % (1.7-9.3); NEUTROPHILS # (AUTO) 14.1 K/uL (1.8-7.7); NEUTROPHILS % (AUTO) 85.4 % (42.2-75.2); PLATELET COUNT (AUTO) 237 K/uL (140-450); RED BLOOD CELL COUNT(AUTO) 2.33 MIL/uL (4.20-6.10); RED CELL DISTRIBUTION WIDTH 15.5 % (11.6-13.7); WHITE BLOOD COUNT (AUTO) 16.5 K/uL (4.8-10.8)
[2023-12-29 04:44] LABS: ALANINE AMINOTRANSFERASE 34 U/L (12-78); ALBUMIN 1.9 g/dL (3.4-5.0); ALKALINE PHOSPHATASE 165 U/L (50-136); ANION GAP 8.3 (8-16); ASPARTATE AMINOTRANSFERASE 49 U/L (15-37); CALCIUM 7.5 mg/dL (8.5-10.1); CARBON DIOXIDE 27.9 mmol/L (21-32); CHLORIDE 102 mmol/L (98-107); CREATININE 0.7 mg/dL (0.6-1.3); GLUCOSE 124 mg/dL (74-106); MAGNESIUM 2.3 mg/dL (1.8-2.4); POTASSIUM 4.2 mmol/L (3.5-5.1); SODIUM SERUM 134 mmol/L (136-145); TOTAL PROTEIN, SERUM 5.2 g/dL (6.4-8.2); UREA NITROGEN, BLOOD 21 mg/dL (7-18)
[2023-12-29] MEDS: ALBUTEROL SULFATE/IPRATROPIU 3 ML SOL IH PRN (12:36)
[2023-12-29] MEDS: MORPHINE SULFATE 2 MG/ML SYR IVP PRN (13:54)
[2023-12-29] MEDS ORDERED: FLUCONAZOLE 200 MG/NS PREMIX 100 ML IV SCH (20:00)
[2023-12-29] MEDS: ALBUTEROL SULFATE/IPRATROPIU 3 ML SOL IH SCH (20:10)
[2023-12-30] VITALS (27 sets, daily range): BP systolic 102–188; BP diastolic 62–119; PULSE 65–115; RESP 15–28; TEMP 94–99.2; O2SAT 95–100
[2023-12-30 05:27] LABS: BASOPHILS # (AUTO) 0.1 K/uL (0.00-0.22); BASOPHILS % (AUTO) 0.6 % (0.0-2.0); EOSINOPHILS # (AUTO) 0.2 K/uL (0-0.4); EOSINOPHILS % (AUTO) 1.2 % (0.0-4.0); HEMOGLOBIN 7.4 g/dL (12.0-18.0); LYMPHOCYTES # (AUTO) 1.6 K/uL (2.0-11.5); LYMPHOCYTES % (AUTO) 10.7 % (20.5-51.1); MEAN CORPUSCULAR HEMOGLOBIN 31 pg (27-31); MEAN CORPUSCULAR HGB CONC 34 g/dL (33-37); MEAN CORPUSCULAR VOLUME 92.7 fL (80-94); MONOCYTES # (AUTO) 0.6 K/uL (0.8-1.0); MONOCYTES % (AUTO) 3.7 % (1.7-9.3); NEUTROPHILS # (AUTO) 12.9 K/uL (1.8-7.7); NEUTROPHILS % (AUTO) 83.8 % (42.2-75.2); PLATELET COUNT (AUTO) 255 K/uL (140-450); RED BLOOD CELL COUNT(AUTO) 2.37 MIL/uL (4.20-6.10); RED CELL DISTRIBUTION WIDTH 15.5 % (11.6-13.7); WHITE BLOOD COUNT (AUTO) 15.4 K/uL (4.8-10.8)
[2023-12-30 06:29] LABS: ALANINE AMINOTRANSFERASE 47 U/L (12-78); ALBUMIN 1.9 g/dL (3.4-5.0); ALKALINE PHOSPHATASE 202 U/L (50-136); ANION GAP 12.9 (8-16); ASPARTATE AMINOTRANSFERASE 45 U/L (15-37); CALCIUM 7.6 mg/dL (8.5-10.1); CARBON DIOXIDE 23.1 mmol/L (21-32); CHLORIDE 101 mmol/L (98-107); CREATININE 0.7 mg/dL (0.6-1.3); GLUCOSE 130 mg/dL (74-106); SODIUM SERUM 133 mmol/L (136-145); TOTAL BILIRUBIN 3.1 mg/dL (0.0-1.0); TOTAL PROTEIN, SERUM 5.5 g/dL (6.4-8.2); UREA NITROGEN, BLOOD 21 mg/dL (7-18)
[2023-12-30] MEDS: FUROSEMIDE 40 MG/4 ML VIAL IVP SCH (12:43)
[2023-12-30] MEDS: TOBRAMYCIN IV SCH (21:17)
[2023-12-30] MEDS: DEXTROSE 5% IV SCH (21:17)
[2023-12-31] VITALS (18 sets, daily range): BP systolic 100–146; BP diastolic 64–87; PULSE 70–136; RESP 16–26; TEMP 97.8–98.2; O2SAT 93–100
[2023-12-31 07:01] LABS: ALANINE AMINOTRANSFERASE 52 U/L (12-78); ALBUMIN 2.2 g/dL (3.4-5.0); ALKALINE PHOSPHATASE 225 U/L (50-136); ANION GAP 11.2 (8-16); ASPARTATE AMINOTRANSFERASE 46 U/L (15-37); CHLORIDE 97 mmol/L (98-107); CREATININE 0.8 mg/dL (0.6-1.3); GLUCOSE 138 mg/dL (74-106); MAGNESIUM 1.9 mg/dL (1.8-2.4); POTASSIUM 3.2 mmol/L (3.5-5.1); SODIUM SERUM 133 mmol/L (136-145); TOTAL BILIRUBIN 3.7 mg/dL (0.0-1.0); TOTAL PROTEIN, SERUM 6.2 g/dL (6.4-8.2); UREA NITROGEN, BLOOD 15 mg/dL (7-18)
[2023-12-31 08:02] LABS: BASOPHILS # (AUTO) 0.1 K/uL (0.00-0.22); BASOPHILS % (AUTO) 0.6 % (0.0-2.0); EOSINOPHILS # (AUTO) 0.1 K/uL (0-0.4); EOSINOPHILS % (AUTO) 0.7 % (0.0-4.0); HEMATOCRIT 22.3 % (36-52); HEMOGLOBIN 7.4 g/dL (12.0-18.0); LYMPHOCYTES # (AUTO) 2.2 K/uL (2.0-11.5); LYMPHOCYTES % (AUTO) 13.7 % (20.5-51.1); MEAN CORPUSCULAR HEMOGLOBIN 31 pg (27-31); MEAN CORPUSCULAR HGB CONC 33 g/dL (33-37); MEAN CORPUSCULAR VOLUME 92.8 fL (80-94); MONOCYTES # (AUTO) 0.8 K/uL (0.8-1.0); MONOCYTES % (AUTO) 5.1 % (1.7-9.3); NEUTROPHILS # (AUTO) 12.7 K/uL (1.8-7.7); NEUTROPHILS % (AUTO) 79.9 % (42.2-75.2); PLATELET COUNT (AUTO) 285 K/uL (140-450); RED BLOOD CELL COUNT(AUTO) 2.41 MIL/uL (4.20-6.10); RED CELL DISTRIBUTION WIDTH 14.9 % (11.6-13.7); WHITE BLOOD COUNT (AUTO) 15.9 K/uL (4.8-10.8)
[2023-12-31] MEDS ORDERED: SODIUM PHOSPHATE 15 MMOLE in NACL 0.9% 250 ML IV SCH (09:30)
[2023-12-31] MEDS: NOREPINEPHRINE 4 MG/4 ML VIAL IV ONE (11:28)
[2023-12-31] MEDS: fentaNYL citrate 0.05 MG/ML VIAL ONE (11:28)
[2023-12-31] MEDS: PHENYLEPHRINE 10 MG/ML VIAL ONE (11:29)
[2023-12-31] MEDS: PROPOFOL 200 MG/20 ML VIAL IV ONE (11:29)
[2023-12-31] MEDS: ROCURONIUM 50 MG/5 ML VIAL IV ONE (11:29)
[2023-12-31] MEDS: ONDANSETRON 4 MG/2 ML VIAL ONE (11:30)
[2023-12-31] MEDS: METOCLOPRAMIDE 10 MG/2 ML INJ VIAL ONE (11:30)
[2023-12-31] MEDS: SODIUM 10 ML ONE (11:30)
[2023-12-31] MEDS: LIDOCAINE MPF 2% 100 MG/5 ML VIAL INJ ONE (11:30)
[2024-01-01] VITALS (11 sets, daily range): BP systolic 107–120; BP diastolic 60–68; PULSE 79–99; RESP 16–19; TEMP 97.2–97.6; O2SAT 93–100
[2024-01-01 05:58] LABS: BASOPHILS # (AUTO) 0.1 K/uL (0.00-0.22); BASOPHILS % (AUTO) 0.7 % (0.0-2.0); EOSINOPHILS # (AUTO) 0.2 K/uL (0-0.4); EOSINOPHILS % (AUTO) 1.4 % (0.0-4.0); HEMATOCRIT 21.1 % (36-52); LYMPHOCYTES # (AUTO) 1.4 K/uL (2.0-11.5); LYMPHOCYTES % (AUTO) 11.3 % (20.5-51.1); MEAN CORPUSCULAR HEMOGLOBIN 31 pg (27-31); MEAN CORPUSCULAR HGB CONC 33 g/dL (33-37); MEAN CORPUSCULAR VOLUME 93.8 fL (80-94); MONOCYTES # (AUTO) 0.6 K/uL (0.8-1.0); MONOCYTES % (AUTO) 5.1 % (1.7-9.3); NEUTROPHILS # (AUTO) 10.3 K/uL (1.8-7.7); NEUTROPHILS % (AUTO) 81.5 % (42.2-75.2); PLATELET COUNT (AUTO) 258 K/uL (140-450); RED BLOOD CELL COUNT(AUTO) 2.25 MIL/uL (4.20-6.10); RED CELL DISTRIBUTION WIDTH 15.1 % (11.6-13.7); WHITE BLOOD COUNT (AUTO) 12.6 K/uL (4.8-10.8)
[2024-01-01 06:23] LABS: ALANINE AMINOTRANSFERASE 43 U/L (12-78); ALBUMIN 1.9 g/dL (3.4-5.0); ALKALINE PHOSPHATASE 231 U/L (50-136); ANION GAP 9.1 (8-16); ASPARTATE AMINOTRANSFERASE 42 U/L (15-37); CALCIUM 7.9 mg/dL (8.5-10.1); CARBON DIOXIDE 28.7 mmol/L (21-32); CHLORIDE 100 mmol/L (98-107); CREATININE 0.8 mg/dL (0.6-1.3); GLUCOSE 117 mg/dL (74-106); MAGNESIUM 1.9 mg/dL (1.8-2.4); POTASSIUM 3.8 mmol/L (3.5-5.1); SODIUM SERUM 134 mmol/L (136-145); TOTAL BILIRUBIN 3.2 mg/dL (0.0-1.0); TOTAL PROTEIN, SERUM 5.9 g/dL (6.4-8.2); UREA NITROGEN, BLOOD 13 mg/dL (7-18)
[2024-01-01] MEDS: MULTIVITAMIN-12 10 ML in DEXTROSE 50% 480 ML, AMINO ACIDS 8.5% 480 ML IV SCH (19:28)
[2024-01-02] VITALS (7 sets, daily range): BP systolic 106–127; BP diastolic 72–76; PULSE 82–93; RESP 14–20; TEMP 97.2–208.8; O2SAT 92–99
[2024-01-02 06:33] LABS: ALANINE AMINOTRANSFERASE 44 U/L (12-78); ALBUMIN 1.9 g/dL (3.4-5.0); ALKALINE PHOSPHATASE 240 U/L (50-136); ANION GAP 10.2 (8-16); ASPARTATE AMINOTRANSFERASE 37 U/L (15-37); CARBON DIOXIDE 26.7 mmol/L (21-32); CHLORIDE 100 mmol/L (98-107); CREATININE 0.8 mg/dL (0.6-1.3); GLUCOSE 127 mg/dL (74-106); MAGNESIUM 1.9 mg/dL (1.8-2.4); POTASSIUM 3.9 mmol/L (3.5-5.1); SODIUM SERUM 133 mmol/L (136-145); TOTAL BILIRUBIN 2.6 mg/dL (0.0-1.0); TOTAL PROTEIN, SERUM 6.1 g/dL (6.4-8.2); UREA NITROGEN, BLOOD 14 mg/dL (7-18)
[2024-01-02] MEDS: DEXTROSE 50% 600 ML, AMINO ACIDS 8.5% 600 ML IV SCH (20:12)
[2024-01-03] VITALS (7 sets, daily range): BP systolic 115–135; BP diastolic 71–76; PULSE 63–108; RESP 16–20; TEMP 97–97.8; O2SAT 93–100
[2024-01-03 06:19] LABS: ALANINE AMINOTRANSFERASE 46 U/L (12-78); ALBUMIN 2.1 g/dL (3.4-5.0); ALKALINE PHOSPHATASE 257 U/L (50-136); ANION GAP 9.8 (8-16); ASPARTATE AMINOTRANSFERASE 37 U/L (15-37); CALCIUM 7.9 mg/dL (8.5-10.1); CHLORIDE 99 mmol/L (98-107); CREATININE 0.8 mg/dL (0.6-1.3); GLUCOSE 128 mg/dL (74-106); MAGNESIUM 1.9 mg/dL (1.8-2.4); POTASSIUM 3.8 mmol/L (3.5-5.1); SODIUM SERUM 132 mmol/L (136-145); TOTAL BILIRUBIN 2.5 mg/dL (0.0-1.0); TOTAL PROTEIN, SERUM 6.5 g/dL (6.4-8.2); UREA NITROGEN, BLOOD 13 mg/dL (7-18)
[2024-01-04] VITALS (8 sets, daily range): BP systolic 111–129; BP diastolic 66–70; PULSE 76–103; RESP 16–18; TEMP 97–98.7; O2SAT 93–98
[2024-01-04 06:35] LABS: BASOPHILS # (AUTO) 0.1 K/uL (0.00-0.22); BASOPHILS % (AUTO) 0.7 % (0.0-2.0); EOSINOPHILS # (AUTO) 0.4 K/uL (0-0.4); EOSINOPHILS % (AUTO) 4.3 % (0.0-4.0); HEMATOCRIT 21.1 % (36-52); HEMOGLOBIN 7.2 g/dL (12.0-18.0); LYMPHOCYTES % (AUTO) 19.3 % (20.5-51.1); MEAN CORPUSCULAR HEMOGLOBIN 33 pg (27-31); MEAN CORPUSCULAR HGB CONC 34 g/dL (33-37); MEAN CORPUSCULAR VOLUME 96.4 fL (80-94); MONOCYTES # (AUTO) 0.5 K/uL (0.8-1.0); MONOCYTES % (AUTO) 5.3 % (1.7-9.3); NEUTROPHILS # (AUTO) 7.3 K/uL (1.8-7.7); NEUTROPHILS % (AUTO) 70.4 % (42.2-75.2); PLATELET COUNT (AUTO) 256 K/uL (140-450); RED BLOOD CELL COUNT(AUTO) 2.19 MIL/uL (4.20-6.10); RED CELL DISTRIBUTION WIDTH 14.8 % (11.6-13.7); WHITE BLOOD COUNT (AUTO) 10.3 K/uL (4.8-10.8)
[2024-01-04 06:37] LABS: ALANINE AMINOTRANSFERASE 47 U/L (12-78); ALKALINE PHOSPHATASE 250 U/L (50-136); ASPARTATE AMINOTRANSFERASE 35 U/L (15-37); CALCIUM 7.9 mg/dL (8.5-10.1); CARBON DIOXIDE 26.9 mmol/L (21-32); CHLORIDE 103 mmol/L (98-107); CREATININE 0.8 mg/dL (0.6-1.3); GLUCOSE 117 mg/dL (74-106); MAGNESIUM 2.1 mg/dL (1.8-2.4); POTASSIUM 3.9 mmol/L (3.5-5.1); SODIUM SERUM 135 mmol/L (136-145); TOTAL PROTEIN, SERUM 6.2 g/dL (6.4-8.2); UREA NITROGEN, BLOOD 13 mg/dL (7-18)
[2024-01-04] MEDS ORDERED: NACL 0.9% 500 ML IV SCH (17:25)
[2024-01-04] MEDS: ceFAZolin 2,000 MG VIAL ONE (19:00)
[2024-01-05 01:56] VITALS: PULSE 80; RESP 16; O2SAT 96
[2024-01-05 04:00] VITALS: BP 120/72; PULSE 99; RESP 18; TEMP 97.2; O2SAT 95
[2024-01-05 06:35] LABS: ANION GAP 9.6 (8-16); CARBON DIOXIDE 26.4 mmol/L (21-32); CHLORIDE 104 mmol/L (98-107); GLUCOSE 134 mg/dL (74-106); SODIUM SERUM 136 mmol/L (136-145)
[2024-01-05 06:36] LABS: ALANINE AMINOTRANSFERASE 38 U/L (12-78); ALKALINE PHOSPHATASE 252 U/L (50-136); ASPARTATE AMINOTRANSFERASE 33 U/L (15-37); CREATININE 0.9 mg/dL (0.6-1.3); TOTAL BILIRUBIN 1.8 mg/dL (0.0-1.0); TOTAL PROTEIN, SERUM 6.4 g/dL (6.4-8.2); UREA NITROGEN, BLOOD 15 mg/dL (7-18)
[2024-01-05 08:00] VITALS: PULSE 103; RESP 17; TEMP 98; O2SAT 95
[2024-01-05 08:09] VITALS: PULSE 97; RESP 20; O2SAT 95
[2024-01-05] MEDS: MIDAZOLAM 2 MG/2 ML VIAL ONE (10:38)
[2024-01-05] MEDS: fentaNYL citrate 0.05 MG/ML VIAL ONE (10:38)
[2024-01-05] MEDS: ceFAZolin 1,000 MG VIAL ONE ×2 (10:39)
[2024-01-05] MEDS: BUPIVACAINE-MPF 0.25% 30 ML VIAL INJ ONE (10:39)
[2024-01-05] MEDS: ACETAMINOPHEN 650 MG/20.3 ML UDC PO PRN (14:29)
[2024-01-05 20:00] VITALS: BP 115/64; PULSE 103; PULSE 18; PULSE 99; RESP 20; RESP 21; TEMP 97.4; TEMP 98; O2SAT 94; O2SAT 95; O2SAT 99
[2024-01-05 20:36] VITALS: PULSE 94; RESP 21; O2SAT 94
[2024-01-05] MEDS: DEXTROSE 50% IV SCH (22:59)
[2024-01-05] MEDS: AMINO ACIDS 8.5% IV SCH (22:59)
[2024-01-06] VITALS (10 sets, daily range): BP systolic 104–128; BP diastolic 71–78; PULSE 88–110; RESP 16–21; TEMP 96.8–98.2; O2SAT 96–100
[2024-01-06 05:54] LABS: MAGNESIUM 1.9 mg/dL (1.8-2.4); PHOSPHORUS 3.5 mg/dL (2.5-4.9)
[2024-01-06 06:02] LABS: ALANINE AMINOTRANSFERASE 36 U/L (12-78); ALKALINE PHOSPHATASE 235 U/L (50-136); ANION GAP 8.9 (8-16); ASPARTATE AMINOTRANSFERASE 30 U/L (15-37); CARBON DIOXIDE 24.9 mmol/L (21-32); CHLORIDE 104 mmol/L (98-107); CREATININE 0.8 mg/dL (0.6-1.3); GLUCOSE 136 mg/dL (74-106); POTASSIUM 3.8 mmol/L (3.5-5.1); SODIUM SERUM 134 mmol/L (136-145); TOTAL BILIRUBIN 1.7 mg/dL (0.0-1.0); TOTAL PROTEIN, SERUM 6.4 g/dL (6.4-8.2); UREA NITROGEN, BLOOD 15 mg/dL (7-18)
[2024-01-07] VITALS (8 sets, daily range): BP systolic 107–128; BP diastolic 58–80; PULSE 74–94; RESP 16–19; TEMP 98.1–98.4; O2SAT 93–100
[2024-01-07 07:16] LABS: ALANINE AMINOTRANSFERASE 37 U/L (12-78); ALBUMIN 1.9 g/dL (3.4-5.0); ALKALINE PHOSPHATASE 228 U/L (50-136); ASPARTATE AMINOTRANSFERASE 33 U/L (15-37); CALCIUM 7.9 mg/dL (8.5-10.1); CARBON DIOXIDE 22.1 mmol/L (21-32); CHLORIDE 104 mmol/L (98-107); CREATININE 0.9 mg/dL (0.6-1.3); SODIUM SERUM 135 mmol/L (136-145); TOTAL BILIRUBIN 1.5 mg/dL (0.0-1.0); TOTAL PROTEIN, SERUM 6.2 g/dL (6.4-8.2); UREA NITROGEN, BLOOD 17 mg/dL (7-18)
[2024-01-07 07:20] LABS: GLUCOSE 676 mg/dL (74-106)
[2024-01-07 07:26] LABS: POTASSIUM 6.1 mmol/L (3.5-5.1)
[2024-01-07] MEDS: INSULIN LISPRO 100 UNITS/ML VIAL SUBQ SCH (08:34)
[2024-01-07] MEDS ORDERED: INSULIN LANTUS 100 UNITS/ML 10 ML VIAL SUBQ SCH (09:00)
[2024-01-07 09:10] LABS: ALANINE AMINOTRANSFERASE 42 U/L (12-78); ALBUMIN 2.1 g/dL (3.4-5.0); ALKALINE PHOSPHATASE 255 U/L (50-136); ANION GAP 10.7 (8-16); ASPARTATE AMINOTRANSFERASE 35 U/L (15-37); CALCIUM 8.2 mg/dL (8.5-10.1); CARBON DIOXIDE 25.5 mmol/L (21-32); CHLORIDE 104 mmol/L (98-107); CREATININE 0.8 mg/dL (0.6-1.3); GLUCOSE 130 mg/dL (74-106); PHOSPHORUS 3.5 mg/dL (2.5-4.9); POTASSIUM 4.2 mmol/L (3.5-5.1); SODIUM SERUM 136 mmol/L (136-145); TOTAL BILIRUBIN 1.7 mg/dL (0.0-1.0); TOTAL PROTEIN, SERUM 6.8 g/dL (6.4-8.2); UREA NITROGEN, BLOOD 18 mg/dL (7-18)
[2024-01-07] MEDS: DEXTROSE 50% 720 ML, AMINO ACIDS 8.5% 720 ML IV SCH (20:07)
[2024-01-08] VITALS (7 sets, daily range): BP systolic 116–122; BP diastolic 68–74; PULSE 69–102; RESP 16–18; TEMP 97.6–98.2; O2SAT 94–100
[2024-01-08 06:19] LABS: ALANINE AMINOTRANSFERASE 48 U/L (12-78); ALKALINE PHOSPHATASE 252 U/L (50-136); ANION GAP 8.3 (8-16); ASPARTATE AMINOTRANSFERASE 44 U/L (15-37); CALCIUM 7.9 mg/dL (8.5-10.1); CARBON DIOXIDE 26.6 mmol/L (21-32); CHLORIDE 104 mmol/L (98-107); CREATININE 0.8 mg/dL (0.6-1.3); GLUCOSE 130 mg/dL (74-106); POTASSIUM 3.9 mmol/L (3.5-5.1); SODIUM SERUM 135 mmol/L (136-145); TOTAL BILIRUBIN 1.5 mg/dL (0.0-1.0); TOTAL PROTEIN, SERUM 6.5 g/dL (6.4-8.2); UREA NITROGEN, BLOOD 19 mg/dL (7-18)
[2024-01-08] MEDS ORDERED: MULTIVITAMIN-12 10 ML in DEXTROSE 50% 665 ML, AMINO ACIDS 8.5% 665 ML, FAT EMULSION 20%... IV SCH (20:00)
[2024-01-14] MEDS ORDERED: METR-520 PO (10:12)
[2024-01-14] MEDS ORDERED: MELA5SGL PO (10:12)
[2024-01-14] MEDS ORDERED: CIPR500T4 PO (10:12)
[2024-01-14] MEDS ORDERED: CIPR2.5D3 RIGHT EYE (10:12)
== END 2024-01-08 17:05 | DRG 853 ==
LOC: EDBD 03:04 → MED 03:04 → MIC 05:39 → MERGE 05:39 → MTU 12-24 06:40 → MIC 12-24 23:55 → MTU 12-31 14:25
PROVIDERS: ADMIT Hospitalist; ATTEND Hospitalist
PROC: 5A1955Z Respiratory Ventilation, Greater than 96 Consecutive Hours (ICD-10-PCS; 2023-12-08)
PROC: 0BH17EZ Insertion of Endotracheal Airway into Trachea, Via Natural or Artificial Opening (ICD-10-PCS; 2023-12-08)
PROC: 02HV33Z Insertion of Infusion Device into Superior Vena Cava, Percutaneous Approach (ICD-10-PCS; 2023-12-08)
PROC: B548ZZA Ultrasonography of Superior Vena Cava, Guidance (ICD-10-PCS; 2023-12-08)
PROC: 5A1D70Z Performance of Urinary Filtration, Intermittent, Less than 6 Hours Per Day (ICD-10-PCS; 2023-12-08)
PROC: 5A1D70Z Performance of Urinary Filtration, Intermittent, Less than 6 Hours Per Day (ICD-10-PCS; 2023-12-09)
PROC: 5A1D70Z Performance of Urinary Filtration, Intermittent, Less than 6 Hours Per Day (ICD-10-PCS; 2023-12-10)
PROC: 02HV33Z Insertion of Infusion Device into Superior Vena Cava, Percutaneous Approach (ICD-10-PCS; 2023-12-15)
PROC: 0D1B0Z4 Bypass Ileum to Cutaneous, Open Approach (ICD-10-PCS; 2023-12-16)
PROC: 0DB80ZZ Excision of Small Intestine, Open Approach (ICD-10-PCS; 2023-12-16)
PROC: 0DNU0ZZ Release Omentum, Open Approach (ICD-10-PCS; 2023-12-16)
PROC: 0DN80ZZ Release Small Intestine, Open Approach (ICD-10-PCS; 2023-12-16)
PROC: 0JB80ZZ Excision of Abdomen Subcutaneous Tissue and Fascia, Open Approach (ICD-10-PCS; principal; 2023-12-16 17:30)
PROC: 5A1D70Z Performance of Urinary Filtration, Intermittent, Less than 6 Hours Per Day (ICD-10-PCS; 2023-12-17)
PROC: 30233N1 Transfusion of Nonautologous Red Blood Cells into Peripheral Vein, Percutaneous Approach (ICD-10-PCS; 2023-12-20)
PROC: 5A0935A Assistance with Respiratory Ventilation, Less than 24 Consecutive Hours, High Flow/Velocity Cannula (ICD-10-PCS; 2023-12-21)
PROC: 0BH17EZ Insertion of Endotracheal Airway into Trachea, Via Natural or Artificial Opening (ICD-10-PCS; 2023-12-22)
PROC: 5A0935A Assistance with Respiratory Ventilation, Less than 24 Consecutive Hours, High Flow/Velocity Cannula (ICD-10-PCS; 2023-12-22)
PROC: 5A1945Z Respiratory Ventilation, 24-96 Consecutive Hours (ICD-10-PCS; 2023-12-22)
PROC: 5A0935A Assistance with Respiratory Ventilation, Less than 24 Consecutive Hours, High Flow/Velocity Cannula (ICD-10-PCS; 2023-12-23)
PROC: 5A1955Z Respiratory Ventilation, Greater than 96 Consecutive Hours (ICD-10-PCS; 2023-12-24)
PROC: 0BH17EZ Insertion of Endotracheal Airway into Trachea, Via Natural or Artificial Opening (ICD-10-PCS; 2023-12-24)
PROC: 5A0935A Assistance with Respiratory Ventilation, Less than 24 Consecutive Hours, High Flow/Velocity Cannula (ICD-10-PCS; 2023-12-24)
PROC: 5A0935A Assistance with Respiratory Ventilation, Less than 24 Consecutive Hours, High Flow/Velocity Cannula (ICD-10-PCS; 2023-12-25)
DX: A41.9 Sepsis, unspecified organism (principal); G93.41 Metabolic encephalopathy; J69.0 Pneumonitis due to inhalation of food and vomit; J96.01 Acute respiratory failure with hypoxia; K65.9 Peritonitis, unspecified; R65.21 Severe sepsis with septic shock; N17.0 Acute kidney failure with tubular necrosis; K63.1 Perforation of intestine (nontraumatic); E87.1 Hypo-osmolality and hyponatremia; I10 Essential (primary) hypertension; E78.5 Hyperlipidemia, unspecified; N40.0 Benign prostatic hyperplasia without lower urinary tract symptoms; D72.829 Elevated white blood cell count, unspecified; E87.5 Hyperkalemia; D64.9 Anemia, unspecified; I25.10 Atherosclerotic heart disease of native coronary artery without angina pectoris; D69.6 Thrombocytopenia, unspecified; Z79.899 Other long term (current) drug therapy
CPT/HCPCS: 36415; 36430; 36600; 71045; 74018; 80048; 80053; 80076; 80200; 80202; 81001; 82040; 82550; 82803; 83605; 83735; 83880; 84100; 84132; 84478; 84484; 85025; 85610; 85730; 86886; 86900; 86901; 86920; 87040; 87070; 87075; 87081; 87086; 87186; 87205; 88304; 88307; 90935; 92526; 93005; 94002; 94003; 94640; 96365; 96375; 99291; A9153; C1750; C9113; J0330; J0610; J0690; J1644; J1815; J1940; J2001; J2185; J2250; J2270; J2370; J2405; J2543; J2704; J2765; J3010; J3260; J3370; J3475; J3480; J3490; J7030; J7060; J7120; P9016; P9046; Q0092; Q9967

== ENCOUNTER 2024-02-01 04:30 | Inpatient (IN) | payer OTHER ==
[~2024-02-01] VITALS: Ht 167.6 cm; Wt 40.8 kg
[~2024-02-01 04:30] MED LIST changes: +ATEN100T2 PO; -ATEN100T6 PO; -CIPR500T4 PO; -LISI5TAB24 PO; -LOPE-289 PO; +MELA5SGL PO; -METR-520 PO; -NAPR-337 PO
[2024-02-01 04:35] VITALS: BP 103/66; PULSE 70; RESP 16; TEMP 98.6; O2SAT 99
[2024-02-01 04:44] VITALS: O2SAT 96
[2024-02-01] MEDS: NACL 0.9% 1,000 ML IV ONE ×2 (05:32→06:37)
[2024-02-01 05:36] LABS: BASOPHILS # (AUTO) 0.1 K/uL (0.00-0.22); BASOPHILS % (AUTO) 1.2 % (0.0-2.0); EOSINOPHILS # (AUTO) 0.8 K/uL (0-0.4); EOSINOPHILS % (AUTO) 6.2 % (0.0-4.0); HEMATOCRIT 32.9 % (36-52); HEMOGLOBIN 10.6 g/dL (12.0-18.0); LYMPHOCYTES # (AUTO) 3.3 K/uL (2.0-11.5); LYMPHOCYTES % (AUTO) 27.4 % (20.5-51.1); MEAN CORPUSCULAR HEMOGLOBIN 29 pg (27-31); MEAN CORPUSCULAR HGB CONC 32 g/dL (33-37); MEAN CORPUSCULAR VOLUME 88.8 fL (80-94); MONOCYTES # (AUTO) 0.7 K/uL (0.8-1.0); MONOCYTES % (AUTO) 5.4 % (1.7-9.3); NEUTROPHILS # (AUTO) 7.2 K/uL (1.8-7.7); NEUTROPHILS % (AUTO) 59.8 % (42.2-75.2); PLATELET COUNT (AUTO) 336 K/uL (140-450); WHITE BLOOD COUNT (AUTO) 12.1 K/uL (4.8-10.8)
[2024-02-01 05:52] LABS: ANION GAP 12.6 (8-16); CALCIUM 9.4 mg/dL (8.5-10.1); CARBON DIOXIDE 27.3 mmol/L (21-32); CHLORIDE 104 mmol/L (98-107); CREATININE 2.9 mg/dL (0.6-1.3); GLUCOSE 104 mg/dL (74-106); POTASSIUM 3.9 mmol/L (3.5-5.1); SODIUM SERUM 140 mmol/L (136-145); UREA NITROGEN, BLOOD 38 mg/dL (7-18)
[2024-02-01 06:01] LABS: BILIRUBIN,DIRECT 0.6 mg/dL (0.0-0.3)
[2024-02-01 06:05] LABS: ALANINE AMINOTRANSFERASE 16 U/L (12-78); ALBUMIN 2.9 g/dL (3.4-5.0); ALKALINE PHOSPHATASE 111 U/L (50-136); ASPARTATE AMINOTRANSFERASE 29 U/L (15-37); LIPASE 52 U/L (16-77); TOTAL BILIRUBIN 1.4 mg/dL (0.0-1.0); TOTAL PROTEIN, SERUM 8.4 g/dL (6.4-8.2)
[2024-02-01] MEDS: PIPERACILLIN/TAZOBACTAM 3.375 GM in DEXTROSE 5% 50 ML IV ONE (07:40)
[2024-02-01] MEDS ORDERED: cefTRIAXone 1,000 MG VIAL ONE (08:42)
[2024-02-01] MEDS ORDERED: PIPERACILLIN/TAZOBACTAM 3.375 GM VIAL IV ONE (08:53)
[2024-02-01] MEDS ORDERED: LORazepam 1 MG TAB PO PRN (10:55)
[2024-02-01] MEDS: NACL 0.9% 1,000 ML IV SCH (10:55)
[2024-02-01] MEDS ORDERED: ONDANSETRON 4 MG/2 ML VIAL IVP PRN (10:55)
[2024-02-01] MEDS ORDERED: ZOLPIDEM 5 MG TAB PO PRN (10:55)
[2024-02-01] MEDS ORDERED: ATOR20TA40 PO (11:15)
[2024-02-01] MEDS ORDERED: ASPI-1856 PO (11:15)
[2024-02-01] MEDS ORDERED: TAMS0.4C97 PO (11:15)
[2024-02-01 15:30] LABS: APPEARANCE,URINE SL CLOUDY (CLEAR); BILIRUBIN,URINE NEGATIVE (NEGATIVE); BLOOD, URINE 1+ (NEGATIVE); COLOR,URINE YELLOW (YELLOW); LEUKOCYTE ESTERASE ,URINE 2+ (NEGATIVE); NITRITE, URINE NEGATIVE (NEGATIVE); PROTEIN,URINE 1+ (NEGATIVE); UGLUCOSE NEGATIVE (NEGATIVE); UROBILINOGEN,URINE 0.2 EU/dL (0.2 - 1)
[2024-02-01 15:32] LABS: BACTERIA,URINE 2+ /HPF (None Seen); RBC,URINE 0-5 /HPF (0-5); SQUAMOUS EPITHELIAL CELL,UR 4-10 (MOD) /LPF (0-3 (FEW))
[2024-02-01 15:33] LABS: MUCUS,URINE None Seen /LPF (None Seen)
[2024-02-01 17:15] VITALS: PULSE 85; RESP 18; O2SAT 100
[2024-02-01 17:34] VITALS: BP 135/68; PULSE 59; RESP 18; TEMP 97.2; O2SAT 93
[2024-02-01] MEDS ORDERED: THERAHONEY GEL 42.5 GM TP PRN (18:05)
[2024-02-01 20:00] VITALS: BP_SYST 118; BP_SYST 136; BP_DIAS 43; BP_DIAS 65; PULSE 63; PULSE 97; RESP 17; RESP 19; TEMP 97.3; O2SAT 97; O2SAT 98
[2024-02-01] MEDS: TAMSULOSIN 0.4 MG CAP PO SCH (22:17)
[2024-02-01] MEDS: HYDROcodone/APAP 5/325 MG 1 TAB TAB PO PRN (22:18)
[2024-02-02 04:00] VITALS: BP 125/61; PULSE 63; RESP 18; TEMP 96.5; O2SAT 93
[2024-02-02 06:49] LABS: BASOPHILS # (AUTO) 0.2 K/uL (0.00-0.22); BASOPHILS % (AUTO) 1.4 % (0.0-2.0); EOSINOPHILS # (AUTO) 0.6 K/uL (0-0.4); EOSINOPHILS % (AUTO) 5.1 % (0.0-4.0); HEMATOCRIT 29.5 % (36-52); HEMOGLOBIN 9.5 g/dL (12.0-18.0); LYMPHOCYTES # (AUTO) 3.5 K/uL (2.0-11.5); LYMPHOCYTES % (AUTO) 30.8 % (20.5-51.1); MEAN CORPUSCULAR HEMOGLOBIN 29 pg (27-31); MEAN CORPUSCULAR HGB CONC 32 g/dL (33-37); MEAN CORPUSCULAR VOLUME 89.4 fL (80-94); MONOCYTES # (AUTO) 0.5 K/uL (0.8-1.0); MONOCYTES % (AUTO) 4.7 % (1.7-9.3); NEUTROPHILS # (AUTO) 6.7 K/uL (1.8-7.7); PLATELET COUNT (AUTO) 290 K/uL (140-450); RED CELL DISTRIBUTION WIDTH 17.4 % (11.6-13.7); WHITE BLOOD COUNT (AUTO) 11.5 K/uL (4.8-10.8)
[2024-02-02 07:10] LABS: ALANINE AMINOTRANSFERASE 13 U/L (12-78); ALBUMIN 2.5 g/dL (3.4-5.0); ALKALINE PHOSPHATASE 87 U/L (50-136); ANION GAP 14.7 (8-16); ASPARTATE AMINOTRANSFERASE 16 U/L (15-37); CALCIUM 8.3 mg/dL (8.5-10.1); CARBON DIOXIDE 23.2 mmol/L (21-32); CHLORIDE 110 mmol/L (98-107); CREATININE 1.6 mg/dL (0.6-1.3); GLUCOSE 86 mg/dL (74-106); POTASSIUM 3.9 mmol/L (3.5-5.1); SODIUM SERUM 144 mmol/L (136-145); TOTAL BILIRUBIN 0.7 mg/dL (0.0-1.0); TOTAL PROTEIN, SERUM 7.2 g/dL (6.4-8.2); UREA NITROGEN, BLOOD 31 mg/dL (7-18)
[2024-02-02 08:00] VITALS: BP 152/96; PULSE 62; PULSE 95; RESP 20; TEMP 98.1; O2SAT 95
[2024-02-02] MEDS ORDERED: THERAHONEY GEL 42.5 GM TP PRN (08:17)
[2024-02-02] MEDS: ASPIRIN 81 MG TAB.CHEW PO SCH (10:07)
[2024-02-02] MEDS: ATORVASTATIN 20 MG TAB PO SCH (10:07)
[2024-02-02] MEDS: DOCUSATE SODIUM 100 MG GELCAP PO SCH (10:07)
[2024-02-02] MEDS: THERAHONEY GEL 42.5 GM TP SCH (10:07)
[2024-02-02 12:00] VITALS: BP 152/96; PULSE 62; RESP 20; TEMP 98.1; O2SAT 95
[2024-02-02 16:00] VITALS: BP 123/67; PULSE 77; RESP 19; TEMP 98.8; O2SAT 98
[2024-02-02 20:00] VITALS: BP 128/56; PULSE 75; RESP 18; TEMP 97.5; O2SAT 95; O2SAT 97
[2024-02-03 04:00] VITALS: BP 136/65; PULSE 71; RESP 19; TEMP 96.8; O2SAT 98
[2024-02-03] MEDS: PIPERACILLIN/TAZOBACTAM 2.25 GM VIAL IV ONE (05:10)
[2024-02-03 06:47] LABS: BASOPHILS # (AUTO) 0.2 K/uL (0.00-0.22); BASOPHILS % (AUTO) 1.3 % (0.0-2.0); EOSINOPHILS # (AUTO) 0.6 K/uL (0-0.4); EOSINOPHILS % (AUTO) 5.2 % (0.0-4.0); HEMATOCRIT 27.2 % (36-52); LYMPHOCYTES # (AUTO) 3.8 K/uL (2.0-11.5); LYMPHOCYTES % (AUTO) 32.4 % (20.5-51.1); MEAN CORPUSCULAR HEMOGLOBIN 29 pg (27-31); MEAN CORPUSCULAR HGB CONC 33 g/dL (33-37); MEAN CORPUSCULAR VOLUME 88.4 fL (80-94); MONOCYTES # (AUTO) 0.6 K/uL (0.8-1.0); MONOCYTES % (AUTO) 4.8 % (1.7-9.3); NEUTROPHILS # (AUTO) 6.6 K/uL (1.8-7.7); NEUTROPHILS % (AUTO) 56.3 % (42.2-75.2); PLATELET COUNT (AUTO) 248 K/uL (140-450); RED BLOOD CELL COUNT(AUTO) 3.08 MIL/uL (4.20-6.10); RED CELL DISTRIBUTION WIDTH 17.7 % (11.6-13.7); WHITE BLOOD COUNT (AUTO) 11.8 K/uL (4.8-10.8)
[2024-02-03 07:33] LABS: ALANINE AMINOTRANSFERASE 13 U/L (12-78); ALBUMIN 2.3 g/dL (3.4-5.0); ALKALINE PHOSPHATASE 81 U/L (50-136); ANION GAP 13.1 (8-16); ASPARTATE AMINOTRANSFERASE 20 U/L (15-37); CALCIUM 8.2 mg/dL (8.5-10.1); CARBON DIOXIDE 23.3 mmol/L (21-32); CHLORIDE 112 mmol/L (98-107); CREATININE 1.1 mg/dL (0.6-1.3); GLUCOSE 85 mg/dL (74-106); POTASSIUM 3.4 mmol/L (3.5-5.1); SODIUM SERUM 145 mmol/L (136-145); TOTAL BILIRUBIN 0.6 mg/dL (0.0-1.0); TOTAL PROTEIN, SERUM 6.6 g/dL (6.4-8.2); UREA NITROGEN, BLOOD 20 mg/dL (7-18)
[2024-02-03 08:00] VITALS: BP 157/74; PULSE 75; RESP 17; TEMP 97.8; O2SAT 98
[2024-02-03 12:00] VITALS: BP 157/74; PULSE 75; RESP 17; TEMP 97.8; O2SAT 98
[2024-02-03] MEDS: POTASSIUM CHLORIDE 10 MEQ TABER PO SCH (13:46)
[2024-02-03 16:00] VITALS: BP 122/62; PULSE 79; RESP 18; TEMP 98; O2SAT 98
[2024-02-03 20:00] VITALS: BP 126/67; PULSE 62; RESP 19; TEMP 98.1; O2SAT 100
[2024-02-04 07:01] LABS: BASOPHILS % (AUTO) 0.2 % (0.0-2.0); EOSINOPHILS # (AUTO) 0.7 K/uL (0-0.4); EOSINOPHILS % (AUTO) 5.2 % (0.0-4.0); HEMATOCRIT 26.1 % (36-52); HEMOGLOBIN 8.6 g/dL (12.0-18.0); LYMPHOCYTES # (AUTO) 3.3 K/uL (2.0-11.5); LYMPHOCYTES % (AUTO) 25.1 % (20.5-51.1); MEAN CORPUSCULAR HEMOGLOBIN 29 pg (27-31); MEAN CORPUSCULAR HGB CONC 33 g/dL (33-37); MEAN CORPUSCULAR VOLUME 88.1 fL (80-94); MONOCYTES # (AUTO) 0.6 K/uL (0.8-1.0); MONOCYTES % (AUTO) 4.7 % (1.7-9.3); NEUTROPHILS # (AUTO) 8.6 K/uL (1.8-7.7); NEUTROPHILS % (AUTO) 64.8 % (42.2-75.2); PLATELET COUNT (AUTO) 221 K/uL (140-450); RED BLOOD CELL COUNT(AUTO) 2.97 MIL/uL (4.20-6.10); RED CELL DISTRIBUTION WIDTH 17.4 % (11.6-13.7); WHITE BLOOD COUNT (AUTO) 13.2 K/uL (4.8-10.8)
[2024-02-04 07:36] LABS: ALANINE AMINOTRANSFERASE 13 U/L (12-78); ALBUMIN 2.2 g/dL (3.4-5.0); ALKALINE PHOSPHATASE 85 U/L (50-136); ANION GAP 11.8 (8-16); ASPARTATE AMINOTRANSFERASE 16 U/L (15-37); CALCIUM 8.1 mg/dL (8.5-10.1); CARBON DIOXIDE 23.2 mmol/L (21-32); CHLORIDE 111 mmol/L (98-107); CREATININE 0.8 mg/dL (0.6-1.3); GLUCOSE 96 mg/dL (74-106); SODIUM SERUM 143 mmol/L (136-145); TOTAL BILIRUBIN 0.6 mg/dL (0.0-1.0); TOTAL PROTEIN, SERUM 6.4 g/dL (6.4-8.2); UREA NITROGEN, BLOOD 11 mg/dL (7-18)
[2024-02-04 08:00] VITALS: BP 145/71; PULSE 79; RESP 18; TEMP 96.6; O2SAT 97
[2024-02-04] MEDS: POTASSIUM CHLORIDE 10 MEQ TABER PO SCH (08:10)
[2024-02-04] MEDS: POTASSIUM CHLORIDE 20% 40 MEQ/15 ML UDC GT SCH (09:51)
[2024-02-04 15:18] VITALS: O2SAT 100
== END 2024-02-04 16:08 | DRG 371 ==
LOC: MED 04:30 → MMU 12:14 → MTU 16:21
PROVIDERS: ADMIT Hospitalist; ATTEND Hospitalist
DX: K65.9 Peritonitis, unspecified (principal); E43 Unspecified severe protein-calorie malnutrition; N17.0 Acute kidney failure with tubular necrosis; Z68.1 Body mass index [BMI] 19.9 or less, adult; E86.0 Dehydration; Z93.3 Colostomy status; N40.0 Benign prostatic hyperplasia without lower urinary tract symptoms; I12.9 Hypertensive chronic kidney disease with stage 1 through stage 4 chronic kidney disease, or unspecified chronic kidney disease; N18.9 Chronic kidney disease, unspecified; E78.5 Hyperlipidemia, unspecified
CPT/HCPCS: 36415; 71045; 80048; 80053; 80076; 81001; 83605; 83690; 84484; 85025; 87040; 87081; 87086; 93005; 96361; 96365; 96368; 99285; J0696; J2543

== ENCOUNTER 2024-02-18 21:36 | Inpatient (IN) | payer OTHER ==
[~2024-02-18] VITALS: Ht 177.8 cm; Wt 56.2 kg
[~2024-02-18 21:36] MED LIST changes: +ASPI-1856 PO; +ATOR20TA40 PO; +TAMS0.4C97 PO
[2024-02-18 21:38] VITALS: BP 63/35; PULSE 87; RESP 14; TEMP 96; O2SAT 100
[2024-02-18] MEDS ORDERED: cefTRIAXone 1,000 MG VIAL ONE (22:45)
[2024-02-18] MEDS: NACL 0.9% 1,000 ML IV ONE ×2 (22:50→23:48)
[2024-02-18 23:13] LABS: BASOPHILS % (AUTO) 0.2 % (0.0-2.0); LYMPHOCYTES # (AUTO) 2.9 K/uL (2.0-11.5); MEAN CORPUSCULAR HEMOGLOBIN 30 pg (27-31); MEAN CORPUSCULAR HGB CONC 31 g/dL (33-37); MEAN CORPUSCULAR VOLUME 96.6 fL (80-94); MONOCYTES # (AUTO) 1.6 K/uL (0.8-1.0); MONOCYTES % (AUTO) 5.6 % (1.7-9.3); NEUTROPHILS # (AUTO) 24.7 K/uL (1.8-7.7); NEUTROPHILS % (AUTO) 84.2 % (42.2-75.2); PLATELET COUNT (AUTO) 317 K/uL (140-450); RED BLOOD CELL COUNT(AUTO) 1.83 MIL/uL (4.20-6.10); RED CELL DISTRIBUTION WIDTH 19.4 % (11.6-13.7)
[2024-02-18 23:16] LABS: HEMATOCRIT 17.6 % (36-52); HEMOGLOBIN 5.4 g/dL (12.0-18.0); WHITE BLOOD COUNT (AUTO) 29.4 K/uL (4.8-10.8)
[2024-02-18 23:39] LABS: ANION GAP 18.8 (8-16); CALCIUM 9.1 mg/dL (8.5-10.1); CARBON DIOXIDE 25.1 mmol/L (21-32); CHLORIDE 105 mmol/L (98-107); GLUCOSE 125 mg/dL (74-106); POTASSIUM 5.9 mmol/L (3.5-5.1); SODIUM SERUM 143 mmol/L (136-145)
[2024-02-18 23:43] LABS: CREATININE 4.6 mg/dL (0.6-1.3); UREA NITROGEN, BLOOD 133 mg/dL (7-18)
[2024-02-19] VITALS (20 sets, daily range): BP systolic 82–122; BP diastolic 46–66; PULSE 13–92; RESP 13–24; TEMP 98–98.3; O2SAT 95–100
[2024-02-19 00:06] LABS: TOTAL BILIRUBIN 0.6 mg/dL (0.0-1.0)
[2024-02-19 00:07] LABS: ALANINE AMINOTRANSFERASE 30 U/L (12-78); ALBUMIN 2.6 g/dL (3.4-5.0); ALKALINE PHOSPHATASE 89 U/L (50-136); ASPARTATE AMINOTRANSFERASE 23 U/L (15-37); BILIRUBIN,DIRECT 0.3 mg/dL (0.0-0.3); TOTAL PROTEIN, SERUM 7.6 g/dL (6.4-8.2)
[2024-02-19 00:35] LABS: CREATINE KINASE, TOTAL 27 U/L (39-308)
[2024-02-19] MEDS: NACL 0.9% 1,000 ML IV ONE (01:04)
[2024-02-19 02:06] LABS: LACTIC ACID 2.5 mmol/L (0.4-2.0)
[2024-02-19 02:12] LABS: INR 1.11 (0.8-1.2); PARTIAL THROMBOPLASTIN TIME 24.8 secs (22-35.6); PROTHROMBIN TIME 11.6 secs (10.8-13.4)
[2024-02-19 04:05] LABS: APPEARANCE,URINE CLEAR (CLEAR); BILIRUBIN,URINE 1+ (NEGATIVE); BLOOD, URINE NEGATIVE (NEGATIVE); COLOR,URINE YELLOW (YELLOW); LEUKOCYTE ESTERASE ,URINE 2+ (NEGATIVE); NITRITE, URINE NEGATIVE (NEGATIVE); PH,URINE 5.5 (5.0-9.0); PROTEIN,URINE TRACE (NEGATIVE); UGLUCOSE NEGATIVE (NEGATIVE); UROBILINOGEN,URINE 0.2 EU/dL (0.2 - 1)
[2024-02-19 04:08] LABS: ICTOTEST POSITIVE (NEGATIVE)
[2024-02-19 04:09] LABS: BACTERIA,URINE >30 (MANY) /HPF (None Seen); RBC,URINE 0-5 /HPF (0-5); WBC,URINE TOO MANY TO COUNT /HPF (0-5)
[2024-02-19 04:10] LABS: MUCUS,URINE 1+ /LPF (None Seen); SQUAMOUS EPITHELIAL CELL,UR 0-3 (FEW) /LPF (0-3 (FEW))
[2024-02-19] MEDS ORDERED: NOREPINEPHRINE 4 MG/4 ML VIAL IV ONE ×2 (04:19)
[2024-02-19] MEDS: NOREPINEPHRINE 16 MG in DEXTROSE 5% 250 ML IV PRN (04:46)
[2024-02-19] MEDS: SODIUM ZIRCONIUM CYCLOSILICATE 10 GM POWD.PACK PO ONE (05:51)
[2024-02-19] MEDS ORDERED: VANCOMYCIN PER PHARMACY MC PRN ×2 (06:50→07:15)
[2024-02-19 06:52] LABS: FLU A ANTIGEN negative (NEGATIVE); FLU B ANTIGEN negative (NEGATIVE)
[2024-02-19] MEDS: LACTATED RINGERS 1,000 ML IV SCH (07:16)
[2024-02-19] MEDS ORDERED: PIPERACILLIN/TAZOBACTAM 2.25 GM VIAL IV ONE (07:25)
[2024-02-19 08:03] LABS: HEMATOCRIT 23.7 % (36-52); HEMOGLOBIN 7.8 g/dL (12.0-18.0); MEAN CORPUSCULAR HEMOGLOBIN 32 pg (27-31); MEAN CORPUSCULAR HGB CONC 33 g/dL (33-37); PLATELET COUNT (AUTO) 319 K/uL (140-450); RED BLOOD CELL COUNT(AUTO) 2.47 MIL/uL (4.20-6.10); RED CELL DISTRIBUTION WIDTH 17.1 % (11.6-13.7)
[2024-02-19 08:12] LABS: WHITE BLOOD COUNT (AUTO) 30.2 K/uL (4.8-10.8)
[2024-02-19 08:20] LABS: CORRECTED WHITE BLOOD COUNT 28.8 K/uL (4.5-11.0); LYMPHOCYTES % (MANUAL) 9 % (20-46); MONOCYTES % (MANUAL) 4 % (5-12)
[2024-02-19 08:21] LABS: PLATELET ESTIMATE ADEQUATE
[2024-02-19 08:27] LABS: ALANINE AMINOTRANSFERASE 34 U/L (12-78); ALBUMIN 2.6 g/dL (3.4-5.0); ALKALINE PHOSPHATASE 91 U/L (50-136); ANION GAP 18.5 (8-16); ASPARTATE AMINOTRANSFERASE 23 U/L (15-37); CALCIUM 8.3 mg/dL (8.5-10.1); CARBON DIOXIDE 21.6 mmol/L (21-32); CHLORIDE 110 mmol/L (98-107); CREATININE 3.9 mg/dL (0.6-1.3); GLUCOSE 150 mg/dL (74-106); POTASSIUM 5.1 mmol/L (3.5-5.1); SODIUM SERUM 145 mmol/L (136-145); TOTAL BILIRUBIN 0.6 mg/dL (0.0-1.0); TOTAL PROTEIN, SERUM 7.7 g/dL (6.4-8.2)
[2024-02-19 08:29] LABS: UREA NITROGEN, BLOOD 116 mg/dL (7-18)
[2024-02-19] MEDS ORDERED: ALBUMIN HUMAN 25% 50 ML IV SCH (09:00)
[2024-02-19] MEDS ORDERED: SODIUM ZIRCONIUM CYCLOSILICATE 10 GM POWD.PACK PO SCH (09:00)
[2024-02-19] MEDS ORDERED: VANCOMYCIN 1,000 MG in DEXTROSE 5% 250 ML IV SCH (09:30)
[2024-02-19] MEDS: VANCOMYCIN 1,000 MG in DEXTROSE 5% 250 ML IV ONE (09:35)
[2024-02-19] MEDS: PIPER/TAZO 2.25GM/D5W PREMIX 50 ML IV SCH (09:35)
[2024-02-19] MEDS: ALBUMIN HUMAN 25% 100 ML IV SCH ×2 (10:42→13:48)
[2024-02-19] MEDS: VANCOMYCIN 1,000 MG in DEXTROSE 5% 250 ML IV SCH (10:44)
[2024-02-19] MEDS ORDERED: PIPERACILLIN/TAZOBACTAM 4.5 GM in DEXTROSE 5% 100 ML IV SCH (12:00)
[2024-02-19] MEDS: PIPERACILLIN/TAZOBACTAM 2.25 GM in DEXTROSE 5% 50 ML IV SCH (13:49)
[2024-02-19] MEDS: DEXT 5% /NACL 0.9% 1,000 ML IV SCH (14:53)
[2024-02-19] MEDS: ATORVASTATIN 20 MG TAB PO SCH (21:11)
[2024-02-20] VITALS (27 sets, daily range): BP systolic 86–127; BP diastolic 43–77; PULSE 60–88; RESP 13–23; TEMP 97.1–97.9; O2SAT 94–100
[2024-02-20 06:00] LABS: BASOPHILS % (AUTO) 0.2 % (0.0-2.0); EOSINOPHILS # (AUTO) 0.2 K/uL (0-0.4); EOSINOPHILS % (AUTO) 0.8 % (0.0-4.0); HEMATOCRIT 20.1 % (36-52); LYMPHOCYTES # (AUTO) 1.9 K/uL (2.0-11.5); LYMPHOCYTES % (AUTO) 10.8 % (20.5-51.1); MEAN CORPUSCULAR HEMOGLOBIN 31 pg (27-31); MEAN CORPUSCULAR HGB CONC 32 g/dL (33-37); MEAN CORPUSCULAR VOLUME 97.8 fL (80-94); MONOCYTES # (AUTO) 0.6 K/uL (0.8-1.0); MONOCYTES % (AUTO) 3.4 % (1.7-9.3); NEUTROPHILS # (AUTO) 15.2 K/uL (1.8-7.7); NEUTROPHILS % (AUTO) 84.8 % (42.2-75.2); PLATELET COUNT (AUTO) 253 K/uL (140-450); RED BLOOD CELL COUNT(AUTO) 2.06 MIL/uL (4.20-6.10); RED CELL DISTRIBUTION WIDTH 17.1 % (11.6-13.7); WHITE BLOOD COUNT (AUTO) 17.9 K/uL (4.8-10.8)
[2024-02-20 06:08] LABS: HEMOGLOBIN 6.4 g/dL (12.0-18.0)
[2024-02-20 06:37] LABS: ANION GAP 16.1 (8-16); CALCIUM 8.7 mg/dL (8.5-10.1); CARBON DIOXIDE 22.3 mmol/L (21-32); CHLORIDE 117 mmol/L (98-107); CREATININE 2.2 mg/dL (0.6-1.3); GLUCOSE 188 mg/dL (74-106); POTASSIUM 3.4 mmol/L (3.5-5.1); SODIUM SERUM 152 mmol/L (136-145)
[2024-02-20 06:51] LABS: UREA NITROGEN, BLOOD 66 mg/dL (7-18)
[2024-02-20] MEDS: ASPIRIN 81 MG TAB.CHEW PO SCH (08:35)
[2024-02-20] MEDS: TAMSULOSIN 0.4 MG CAP PO SCH (08:35)
[2024-02-20] MEDS: DEXT 5% / NACL 0.45% 1,000 ML IV SCH (10:55)
[2024-02-20] MEDS: KCL 20 MEQ IN 100 mL PREMIX 100 ML IV SCH (11:00)
[2024-02-20] MEDS: VANCOMYCIN 1,000 MG in DEXTROSE 5% 250 ML IV SCH (11:00)
[2024-02-20] MEDS ORDERED: MORPHINE SULFATE 2 MG/ML SYR IVP PRN (13:40)
[2024-02-20] MEDS: ONDANSETRON 4 MG/2 ML VIAL IVP PRN (13:52)
[2024-02-20] MEDS: HYDROcodone/APAP 5/325 MG 1 TAB TAB PO PRN (13:52)
[2024-02-20] MEDS: CHLORHEXADINE GLUC 2% CLOTH TP SCH (15:30)
[2024-02-20] MEDS: MUPIROCIN CA NASAL 2% 1GM TUBE NS SCH (15:37)
[2024-02-20 16:47] LABS: BASOPHILS % (AUTO) 0.1 % (0.0-2.0); EOSINOPHILS # (AUTO) 0.3 K/uL (0-0.4); EOSINOPHILS % (AUTO) 1.8 % (0.0-4.0); HEMATOCRIT 24.8 % (36-52); HEMOGLOBIN 8.1 g/dL (12.0-18.0); LYMPHOCYTES # (AUTO) 1.9 K/uL (2.0-11.5); LYMPHOCYTES % (AUTO) 12.9 % (20.5-51.1); MEAN CORPUSCULAR HEMOGLOBIN 31 pg (27-31); MEAN CORPUSCULAR HGB CONC 32 g/dL (33-37); MEAN CORPUSCULAR VOLUME 95.4 fL (80-94); MONOCYTES # (AUTO) 0.7 K/uL (0.8-1.0); NEUTROPHILS # (AUTO) 11.6 K/uL (1.8-7.7); NEUTROPHILS % (AUTO) 80.2 % (42.2-75.2); PLATELET COUNT (AUTO) 213 K/uL (140-450); RED CELL DISTRIBUTION WIDTH 16.4 % (11.6-13.7); WHITE BLOOD COUNT (AUTO) 14.5 K/uL (4.8-10.8)
[2024-02-20] MEDS: PANTOPRAZOLE 40 MG INJ VIAL IVP SCH (20:26)
[2024-02-21] VITALS (24 sets, daily range): BP systolic 89–127; BP diastolic 52–82; PULSE 65–97; RESP 12–24; TEMP 97.1–98.7; O2SAT 95–98
[2024-02-21 05:55] LABS: BASOPHILS # (AUTO) 0.2 K/uL (0.00-0.22); BASOPHILS % (AUTO) 1.7 % (0.0-2.0); EOSINOPHILS # (AUTO) 0.7 K/uL (0-0.4); EOSINOPHILS % (AUTO) 5.6 % (0.0-4.0); HEMATOCRIT 24.4 % (36-52); LYMPHOCYTES # (AUTO) 2.1 K/uL (2.0-11.5); LYMPHOCYTES % (AUTO) 16.5 % (20.5-51.1); MEAN CORPUSCULAR HEMOGLOBIN 31 pg (27-31); MEAN CORPUSCULAR HGB CONC 33 g/dL (33-37); MEAN CORPUSCULAR VOLUME 95.7 fL (80-94); MONOCYTES # (AUTO) 0.5 K/uL (0.8-1.0); MONOCYTES % (AUTO) 3.9 % (1.7-9.3); NEUTROPHILS # (AUTO) 9.2 K/uL (1.8-7.7); NEUTROPHILS % (AUTO) 72.3 % (42.2-75.2); PLATELET COUNT (AUTO) 198 K/uL (140-450); RED BLOOD CELL COUNT(AUTO) 2.55 MIL/uL (4.20-6.10); RED CELL DISTRIBUTION WIDTH 16.9 % (11.6-13.7); WHITE BLOOD COUNT (AUTO) 12.7 K/uL (4.8-10.8)
[2024-02-21 06:02] LABS: ANION GAP 10.5 (8-16); CALCIUM 8.5 mg/dL (8.5-10.1); CARBON DIOXIDE 23.4 mmol/L (21-32); CHLORIDE 118 mmol/L (98-107); CREATININE 1.5 mg/dL (0.6-1.3); GLUCOSE 132 mg/dL (74-106); SODIUM SERUM 149 mmol/L (136-145); UREA NITROGEN, BLOOD 35 mg/dL (7-18)
[2024-02-21 06:07] LABS: POTASSIUM 2.9 mmol/L (3.5-5.1)
[2024-02-21] MEDS: VANCOMYCIN HCL 750 MG in DEXTROSE 5% 250 ML IV SCH (09:47)
[2024-02-21] MEDS: POTASSIUM CHLORIDE 40 MEQ, LIDOCAINE 1% 25 MG in NACL 0.9% 250 ML IV PRN (10:41)
[2024-02-21] MEDS ORDERED: ALGINATE ROPE MC PRN (12:15)
[2024-02-21] MEDS ORDERED: FOAM DRESSING TP PRN (12:15)
[2024-02-21] MEDS: ALBUMIN HUMAN 25% 100 ML IV SCH (13:05)
[2024-02-21] MEDS: ALGINATE ROPE MC SCH (13:52)
[2024-02-21] MEDS: FOAM DRESSING TP SCH (13:52)
[2024-02-22] VITALS (24 sets, daily range): BP systolic 92–131; BP diastolic 53–67; PULSE 74–89; RESP 13–19; TEMP 97.6–98.6; O2SAT 94–100
[2024-02-22 08:33] LABS: ANION GAP 14.3 (8-16); CALCIUM 8.4 mg/dL (8.5-10.1); CARBON DIOXIDE 19.8 mmol/L (21-32); CHLORIDE 116 mmol/L (98-107); GLUCOSE 109 mg/dL (74-106); POTASSIUM 3.1 mmol/L (3.5-5.1); SODIUM SERUM 147 mmol/L (136-145); UREA NITROGEN, BLOOD 18 mg/dL (7-18)
[2024-02-22] MEDS: DEXT 5% / NACL 0.45% 1,000 ML IV SCH (10:15)
[2024-02-22] MEDS: KCL 20 MEQ IN 100 mL PREMIX 200 ML IV SCH (10:44)
[2024-02-22 11:09] LABS: MEAN CORPUSCULAR HGB CONC 33 g/dL (33-37); NEUTROPHILS # (AUTO) 7.4 K/uL (1.8-7.7)
[2024-02-22 11:53] LABS: BASOPHILS % (AUTO) 0.2 % (0.0-2.0); EOSINOPHILS # (AUTO) 1.1 K/uL (0-0.4); HEMATOCRIT 26.2 % (36-52); HEMOGLOBIN 8.5 g/dL (12.0-18.0); LYMPHOCYTES # (AUTO) 2.8 K/uL (2.0-11.5); LYMPHOCYTES % (AUTO) 24.1 % (20.5-51.1); MEAN CORPUSCULAR HEMOGLOBIN 31 pg (27-31); MEAN CORPUSCULAR VOLUME 94.6 fL (80-94); MONOCYTES # (AUTO) 0.3 K/uL (0.8-1.0); MONOCYTES % (AUTO) 2.9 % (1.7-9.3); NEUTROPHILS % (AUTO) 63.8 % (42.2-75.2); PLATELET COUNT (AUTO) 214 K/uL (140-450); RED BLOOD CELL COUNT(AUTO) 2.77 MIL/uL (4.20-6.10); RED CELL DISTRIBUTION WIDTH 17.6 % (11.6-13.7); WHITE BLOOD COUNT (AUTO) 11.7 K/uL (4.8-10.8)
[2024-02-22] MEDS: VANCOMYCIN 500 MG in DEXTROSE 5% 100 ML IV SCH (11:54)
[2024-02-23] VITALS (22 sets, daily range): BP systolic 93–118; BP diastolic 47–87; PULSE 74–97; RESP 16–21; TEMP 97.7–99.3; O2SAT 95–100
[2024-02-23 06:40] LABS: ANION GAP 11.6 (8-16); CALCIUM 8.2 mg/dL (8.5-10.1); CARBON DIOXIDE 21.5 mmol/L (21-32); CHLORIDE 111 mmol/L (98-107); CREATININE 0.9 mg/dL (0.6-1.3); GLUCOSE 105 mg/dL (74-106); POTASSIUM 3.1 mmol/L (3.5-5.1); SODIUM SERUM 141 mmol/L (136-145); UREA NITROGEN, BLOOD 11 mg/dL (7-18)
[2024-02-23 11:05] LABS: BASOPHILS % (AUTO) 0.4 % (0.0-2.0); EOSINOPHILS # (AUTO) 1.3 K/uL (0-0.4); HEMATOCRIT 24.9 % (36-52); HEMOGLOBIN 8.1 g/dL (12.0-18.0); LYMPHOCYTES # (AUTO) 2.4 K/uL (2.0-11.5); LYMPHOCYTES % (AUTO) 23.8 % (20.5-51.1); MEAN CORPUSCULAR HEMOGLOBIN 31 pg (27-31); MEAN CORPUSCULAR HGB CONC 33 g/dL (33-37); MEAN CORPUSCULAR VOLUME 95.8 fL (80-94); MONOCYTES # (AUTO) 0.3 K/uL (0.8-1.0); MONOCYTES % (AUTO) 3.2 % (1.7-9.3); NEUTROPHILS # (AUTO) 5.9 K/uL (1.8-7.7); NEUTROPHILS % (AUTO) 59.6 % (42.2-75.2); PLATELET COUNT (AUTO) 208 K/uL (140-450); RED BLOOD CELL COUNT(AUTO) 2.59 MIL/uL (4.20-6.10); RED CELL DISTRIBUTION WIDTH 17.3 % (11.6-13.7); WHITE BLOOD COUNT (AUTO) 9.9 K/uL (4.8-10.8)
[2024-02-23] MEDS: KCL 20 MEQ IN 100 mL PREMIX 200 ML IV SCH (11:44)
[2024-02-23] MEDS: VANCOMYCIN 500 MG in DEXTROSE 5% 100 ML IV SCH (12:16)
[2024-02-23] MEDS: PIPERACILLIN/TAZOBACTAM 2.25 GM in DEXTROSE 5% 50 ML IV SCH (20:40)
[2024-02-24] VITALS: BP 103/65; PULSE 80; PULSE 94; RESP 13; TEMP 98.3; O2SAT 96
[2024-02-24 04:00] VITALS: BP 117/71; PULSE 93; RESP 13; TEMP 97.9; O2SAT 98
[2024-02-24] MEDS ORDERED: VANCOMYCIN PER PHARMACY MC PRN (06:35)
[2024-02-24 06:53] LABS: BASOPHILS # (AUTO) 0.1 K/uL (0.00-0.22); BASOPHILS % (AUTO) 0.5 % (0.0-2.0); EOSINOPHILS # (AUTO) 1.3 K/uL (0-0.4); EOSINOPHILS % (AUTO) 11.8 % (0.0-4.0); HEMATOCRIT 25.4 % (36-52); HEMOGLOBIN 8.5 g/dL (12.0-18.0); LYMPHOCYTES # (AUTO) 2.6 K/uL (2.0-11.5); LYMPHOCYTES % (AUTO) 24.4 % (20.5-51.1); MEAN CORPUSCULAR HEMOGLOBIN 32 pg (27-31); MEAN CORPUSCULAR HGB CONC 34 g/dL (33-37); MEAN CORPUSCULAR VOLUME 93.8 fL (80-94); MONOCYTES # (AUTO) 0.3 K/uL (0.8-1.0); MONOCYTES % (AUTO) 3.2 % (1.7-9.3); NEUTROPHILS # (AUTO) 6.5 K/uL (1.8-7.7); NEUTROPHILS % (AUTO) 60.1 % (42.2-75.2); PLATELET COUNT (AUTO) 211 K/uL (140-450); RED BLOOD CELL COUNT(AUTO) 2.71 MIL/uL (4.20-6.10); RED CELL DISTRIBUTION WIDTH 17.1 % (11.6-13.7); WHITE BLOOD COUNT (AUTO) 10.9 K/uL (4.8-10.8)
[2024-02-24 07:32] LABS: ANION GAP 12.5 (8-16); CALCIUM 8.7 mg/dL (8.5-10.1); CARBON DIOXIDE 22.9 mmol/L (21-32); CHLORIDE 109 mmol/L (98-107); CREATININE 0.9 mg/dL (0.6-1.3); GLUCOSE 93 mg/dL (74-106); POTASSIUM 3.4 mmol/L (3.5-5.1); SODIUM SERUM 141 mmol/L (136-145); UREA NITROGEN, BLOOD 10 mg/dL (7-18)
[2024-02-24 08:00] VITALS: BP 128/66; PULSE 90; RESP 18; TEMP 97; TEMP 97.8; O2SAT 97
[2024-02-24] MEDS: POTASSIUM CHLORIDE 10 MEQ TABER PO SCH (09:45)
[2024-02-24] MEDS ORDERED: PIPE1SOL IV (11:28)
[2024-02-24] MEDS ORDERED: VANC1PIG IV (11:28)
[2024-02-24 11:31] LABS: BASOPHILS # (AUTO) 0.1 K/uL (0.00-0.22); BASOPHILS % (AUTO) 0.6 % (0.0-2.0); EOSINOPHILS # (AUTO) 1.3 K/uL (0-0.4); EOSINOPHILS % (AUTO) 12.1 % (0.0-4.0); HEMATOCRIT 26.4 % (36-52); HEMOGLOBIN 8.9 g/dL (12.0-18.0); LYMPHOCYTES # (AUTO) 2.6 K/uL (2.0-11.5); LYMPHOCYTES % (AUTO) 24.7 % (20.5-51.1); MEAN CORPUSCULAR HEMOGLOBIN 32 pg (27-31); MEAN CORPUSCULAR HGB CONC 34 g/dL (33-37); MEAN CORPUSCULAR VOLUME 93.7 fL (80-94); MONOCYTES # (AUTO) 0.4 K/uL (0.8-1.0); MONOCYTES % (AUTO) 3.3 % (1.7-9.3); NEUTROPHILS # (AUTO) 6.4 K/uL (1.8-7.7); NEUTROPHILS % (AUTO) 59.3 % (42.2-75.2); PLATELET COUNT (AUTO) 218 K/uL (140-450); RED BLOOD CELL COUNT(AUTO) 2.82 MIL/uL (4.20-6.10); RED CELL DISTRIBUTION WIDTH 16.6 % (11.6-13.7); WHITE BLOOD COUNT (AUTO) 10.7 K/uL (4.8-10.8)
[2024-02-24 11:43] LABS: ANION GAP 9.1 (8-16); CALCIUM 8.8 mg/dL (8.5-10.1); CARBON DIOXIDE 25.3 mmol/L (21-32); CHLORIDE 108 mmol/L (98-107); CREATININE 0.9 mg/dL (0.6-1.3); GLUCOSE 84 mg/dL (74-106); POTASSIUM 3.4 mmol/L (3.5-5.1); SODIUM SERUM 139 mmol/L (136-145); UREA NITROGEN, BLOOD 9 mg/dL (7-18)
[2024-02-24 12:00] VITALS: BP 121/75; PULSE 101; PULSE 104; RESP 18; TEMP 96.9; O2SAT 97
[2024-02-24 16:00] VITALS: BP 113/68; PULSE 98; RESP 18; TEMP 97.1; O2SAT 96
[2024-02-24 20:00] VITALS: BP 130/70; PULSE 101; PULSE 112; RESP 19; TEMP 98; O2SAT 96
[2024-02-25] VITALS: BP 130/70; PULSE 101; PULSE 112; RESP 19; TEMP 98; O2SAT 96
[2024-02-25 04:00] VITALS: BP 121/65; PULSE 97; RESP 18; TEMP 97.7; O2SAT 96
[2024-02-25] MEDS ORDERED: ASPI-1822 PO (20:35)
[2024-02-25] MEDS ORDERED: TAMS0.4C96 PO (20:36)
[2024-02-25] MEDS ORDERED: ATEN100T6 PO (20:36)
[2024-02-25] MEDS ORDERED: MELA5SGL PO (20:36)
[2024-02-25] MEDS ORDERED: OMEP40EC23 PO (20:36)
[2024-02-26] MEDS ORDERED: AMOX-999 PO (14:43)
== END 2024-02-25 16:42 | DRG 871 ==
LOC: MED 21:36 → MIC 02-19 07:08 → MED 02-19 07:08 → MIC 02-20 15:12 → MTU 02-24 01:04
PROVIDERS: ADMIT Student in an Organized Health Care Education/Training Program; ATTEND Student in an Organized Health Care Education/Training Program
PROC: 30233N1 Transfusion of Nonautologous Red Blood Cells into Peripheral Vein, Percutaneous Approach (ICD-10-PCS; principal; 2024-02-19)
PROC: 06HY33Z Insertion of Infusion Device into Lower Vein, Percutaneous Approach (ICD-10-PCS; 2024-02-19)
PROC: B54BZZA Ultrasonography of Right Lower Extremity Veins, Guidance (ICD-10-PCS; 2024-02-19)
DX: A41.9 Sepsis, unspecified organism (principal); E43 Unspecified severe protein-calorie malnutrition; J18.9 Pneumonia, unspecified organism; R65.21 Severe sepsis with septic shock; N17.0 Acute kidney failure with tubular necrosis; K65.9 Peritonitis, unspecified; N39.0 Urinary tract infection, site not specified; E87.0 Hyperosmolality and hypernatremia; Z68.1 Body mass index [BMI] 19.9 or less, adult; E87.20 Acidosis, unspecified; Z20.822 Contact with and (suspected) exposure to COVID-19; N40.0 Benign prostatic hyperplasia without lower urinary tract symptoms; E78.5 Hyperlipidemia, unspecified; D63.1 Anemia in chronic kidney disease; I12.9 Hypertensive chronic kidney disease with stage 1 through stage 4 chronic kidney disease, or unspecified chronic kidney disease; N18.9 Chronic kidney disease, unspecified; K80.20 Calculus of gallbladder without cholecystitis without obstruction; K52.9 Noninfective gastroenteritis and colitis, unspecified; Z93.3 Colostomy status; Z90.49 Acquired absence of other specified parts of digestive tract; Z79.899 Other long term (current) drug therapy
CPT/HCPCS: 36415; 36430; 36556; 71045; 80048; 80053; 80076; 80202; 81001; 82272; 82550; 82553; 83605; 83880; 84132; 84484; 85025; 85610; 85730; 86886; 86900; 86901; 86920; 87040; 87081; 87086; 92610; 93005; 96361; 96374; 99291; J0696; J2001; J2405; J2470; J2543; J3370; J3480; J3490; J7030; J7060; P9016; P9046; Q0092

== ENCOUNTER 2024-02-25 17:48 | Inpatient (IN) | payer OTHER ==
[~2024-02-25] VITALS: Ht 172.7 cm; Wt 59.0 kg
[~2024-02-25 17:48] MED LIST changes: +PIPE1SOL IV; +VANC1PIG IV
[2024-02-25 17:55] VITALS: BP 114/74; PULSE 104; RESP 14; TEMP 98.6; O2SAT 96
[2024-02-25 18:32] LABS: BASOPHILS # (AUTO) 0.1 K/uL (0.00-0.22); BASOPHILS % (AUTO) 0.5 % (0.0-2.0); EOSINOPHILS # (AUTO) 0.8 K/uL (0-0.4); EOSINOPHILS % (AUTO) 6.9 % (0.0-4.0); HEMATOCRIT 25.7 % (36-52); HEMOGLOBIN 8.2 g/dL (12.0-18.0); LYMPHOCYTES # (AUTO) 1.7 K/uL (2.0-11.5); LYMPHOCYTES % (AUTO) 14.8 % (20.5-51.1); MEAN CORPUSCULAR HEMOGLOBIN 30 pg (27-31); MEAN CORPUSCULAR HGB CONC 32 g/dL (33-37); MEAN CORPUSCULAR VOLUME 95.1 fL (80-94); MONOCYTES # (AUTO) 0.4 K/uL (0.8-1.0); MONOCYTES % (AUTO) 3.1 % (1.7-9.3); NEUTROPHILS # (AUTO) 8.8 K/uL (1.8-7.7); NEUTROPHILS % (AUTO) 74.7 % (42.2-75.2); PLATELET COUNT (AUTO) 234 K/uL (140-450); RED BLOOD CELL COUNT(AUTO) 2.71 MIL/uL (4.20-6.10); RED CELL DISTRIBUTION WIDTH 17.3 % (11.6-13.7); WHITE BLOOD COUNT (AUTO) 11.8 K/uL (4.8-10.8)
[2024-02-25 18:50] LABS: ANION GAP 12.2 (8-16); CARBON DIOXIDE 24.5 mmol/L (21-32); CHLORIDE 110 mmol/L (98-107); CREATININE 0.8 mg/dL (0.6-1.3); GLUCOSE 101 mg/dL (74-106); POTASSIUM 3.7 mmol/L (3.5-5.1); SODIUM SERUM 143 mmol/L (136-145); UREA NITROGEN, BLOOD 25 mg/dL (7-18)
[2024-02-25 18:54] LABS: INR 1.11 (0.8-1.2); PROTHROMBIN TIME 11.6 secs (10.8-13.4)
[2024-02-25 19:00] LABS: ALANINE AMINOTRANSFERASE 18 U/L (12-78); ALBUMIN 2.5 g/dL (3.4-5.0); ALKALINE PHOSPHATASE 64 U/L (50-136); ASPARTATE AMINOTRANSFERASE 14 U/L (15-37); BILIRUBIN,DIRECT 0.3 mg/dL (0.0-0.3); CREATINE KINASE, TOTAL 10 U/L (39-308); TOTAL BILIRUBIN 0.5 mg/dL (0.0-1.0); TOTAL PROTEIN, SERUM 6.4 g/dL (6.4-8.2)
[2024-02-25 19:03] LABS: LACTIC ACID 1.1 mmol/L (0.4-2.0)
[2024-02-25] MEDS: NACL 0.9% 1,000 ML IV ONE (19:12)
[2024-02-25] MEDS ORDERED: ASPI-1822 PO (20:35)
[2024-02-25] MEDS ORDERED: TAMS0.4C96 PO (20:36)
[2024-02-25] MEDS ORDERED: OMEP40EC23 PO (20:36)
[2024-02-25] MEDS ORDERED: ATEN100T6 PO (20:36)
[2024-02-25] MEDS ORDERED: MELA5SGL PO (20:36)
[2024-02-25] MEDS ORDERED: LORazepam 1 MG TAB PO PRN (21:25)
[2024-02-25] MEDS ORDERED: ONDANSETRON 4 MG/2 ML VIAL IVP PRN (21:25)
[2024-02-25] MEDS ORDERED: ZOLPIDEM 5 MG TAB PO PRN (21:25)
[2024-02-25] MEDS ORDERED: ACETAMINOPHEN 325 MG TAB PO PRN (21:25)
[2024-02-25 22:15] VITALS: BP 103/67; PULSE 100; RESP 18; TEMP 97.4; O2SAT 100
[2024-02-25 22:18] VITALS: PULSE 102
[2024-02-25 22:50] VITALS: PULSE 100; RESP 18; O2SAT 98
[2024-02-25] MEDS: PIPERACILLIN/TAZOBACTAM 3.375 GM in DEXTROSE 5% 50 ML IV ONE (22:54)
[2024-02-25] MEDS: NACL 0.9% 1,000 ML IV SCH (22:55)
[2024-02-25] MEDS: PIPERACILLIN/TAZOBACTAM 3.375 GM VIAL IV ONE (22:55)
[2024-02-26] VITALS: BP 106/65; PULSE 102; PULSE 104; RESP 18; TEMP 97.1; O2SAT 95
[2024-02-26 04:00] VITALS: BP 121/74; PULSE 98; PULSE 99; RESP 18; TEMP 96.2; O2SAT 100
[2024-02-26 05:52] LABS: APPEARANCE,URINE CLEAR (CLEAR); BILIRUBIN,URINE NEGATIVE (NEGATIVE); BLOOD, URINE NEGATIVE (NEGATIVE); COLOR,URINE YELLOW (YELLOW); LEUKOCYTE ESTERASE ,URINE 1+ (NEGATIVE); NITRITE, URINE NEGATIVE (NEGATIVE); PH,URINE 5.5 (5.0-9.0); PROTEIN,URINE NEGATIVE (NEGATIVE); UGLUCOSE NEGATIVE (NEGATIVE); UROBILINOGEN,URINE 0.2 EU/dL (0.2 - 1)
[2024-02-26 06:32] LABS: BACTERIA,URINE >30 (MANY) /HPF (None Seen); MUCUS,URINE 1+ /LPF (None Seen); SQUAMOUS EPITHELIAL CELL,UR 0-3 (FEW) /LPF (0-3 (FEW)); WBC,URINE >25 (MANY) /HPF (0-5)
[2024-02-26 07:13] LABS: BASOPHILS # (AUTO) 0.1 K/uL (0.00-0.22); BASOPHILS % (AUTO) 0.6 % (0.0-2.0); EOSINOPHILS # (AUTO) 0.8 K/uL (0-0.4); EOSINOPHILS % (AUTO) 7.7 % (0.0-4.0); HEMATOCRIT 22.7 % (36-52); HEMOGLOBIN 7.5 g/dL (12.0-18.0); LYMPHOCYTES # (AUTO) 2.8 K/uL (2.0-11.5); LYMPHOCYTES % (AUTO) 26.3 % (20.5-51.1); MEAN CORPUSCULAR HEMOGLOBIN 31 pg (27-31); MEAN CORPUSCULAR HGB CONC 33 g/dL (33-37); MEAN CORPUSCULAR VOLUME 94.6 fL (80-94); MONOCYTES # (AUTO) 0.4 K/uL (0.8-1.0); MONOCYTES % (AUTO) 3.3 % (1.7-9.3); NEUTROPHILS # (AUTO) 6.6 K/uL (1.8-7.7); NEUTROPHILS % (AUTO) 62.1 % (42.2-75.2); PLATELET COUNT (AUTO) 218 K/uL (140-450); RED CELL DISTRIBUTION WIDTH 17.5 % (11.6-13.7); WHITE BLOOD COUNT (AUTO) 10.7 K/uL (4.8-10.8)
[2024-02-26 08:00] VITALS: BP 123/77; PULSE 101; PULSE 98; RESP 18; TEMP 96.4; O2SAT 97
[2024-02-26 08:38] LABS: CALCIUM 8.7 mg/dL (8.5-10.1); CARBON DIOXIDE 23.3 mmol/L (21-32); CHLORIDE 112 mmol/L (98-107); CREATININE 0.9 mg/dL (0.6-1.3); GLUCOSE 76 mg/dL (74-106); POTASSIUM 3.3 mmol/L (3.5-5.1); SODIUM SERUM 145 mmol/L (136-145); UREA NITROGEN, BLOOD 24 mg/dL (7-18)
[2024-02-26 08:43] LABS: ALANINE AMINOTRANSFERASE 18 U/L (12-78); ALBUMIN 2.4 g/dL (3.4-5.0); ALKALINE PHOSPHATASE 53 U/L (50-136); ASPARTATE AMINOTRANSFERASE 16 U/L (15-37); TOTAL BILIRUBIN 0.6 mg/dL (0.0-1.0); TOTAL PROTEIN, SERUM 6.2 g/dL (6.4-8.2)
[2024-02-26] MEDS: ECOTRIN 81 MG TABEC PO SCH (10:18)
[2024-02-26] MEDS: TAMSULOSIN 0.4 MG CAP PO SCH (10:18)
[2024-02-26] MEDS: DOCUSATE SODIUM 100 MG GELCAP PO SCH (10:18)
[2024-02-26] MEDS: ATORVASTATIN 20 MG TAB PO SCH (10:18)
[2024-02-26] MEDS: atenoloL 50 MG TAB PO SCH (10:19)
[2024-02-26 12:00] VITALS: BP 105/71; PULSE 70; PULSE 81; RESP 18; TEMP 96.8; O2SAT 99
[2024-02-26] MEDS: PIPERACILLIN/TAZOBACTAM 3.375 GM in DEXTROSE 5% 50 ML IV SCH (13:05)
[2024-02-26] MEDS ORDERED: AMOX-999 PO (14:43)
[2024-02-26 16:00] VITALS: BP 93/49; PULSE 69; PULSE 75; RESP 18; TEMP 97; O2SAT 99
== END 2024-02-26 20:15 | DRG 193 ==
LOC: MED 17:48 → MTU 21:22
PROVIDERS: ADMIT Student in an Organized Health Care Education/Training Program; ATTEND Student in an Organized Health Care Education/Training Program
DX: J18.9 Pneumonia, unspecified organism (principal); E43 Unspecified severe protein-calorie malnutrition; Z68.1 Body mass index [BMI] 19.9 or less, adult; N40.0 Benign prostatic hyperplasia without lower urinary tract symptoms; I12.9 Hypertensive chronic kidney disease with stage 1 through stage 4 chronic kidney disease, or unspecified chronic kidney disease; N18.9 Chronic kidney disease, unspecified; Z79.82 Long term (current) use of aspirin; Z79.899 Other long term (current) drug therapy
CPT/HCPCS: 36415; 71045; 80048; 80053; 80076; 81001; 82550; 83605; 83880; 84484; 85025; 85610; 85730; 87040; 87081; 87086; 93005; 96360; 99285; J2543; J7060; Q0092